=== PATIENT | female | born 1935 | race Caucasian/White ===

== ENCOUNTER 2022-10-06 19:16 | Inpatient (IN) | payer MEDICARE, MEDICAID, SELFPAY ==
--- NOTE | ~2022-10-06 | XR_ITS ---
EXAMINATION: XR CHEST CLINICAL INFORMATION: Cough and fever COMPARISON: None available. TECHNIQUE: Frontal view of the chest was obtained. FINDINGS: Normal symmetric lung volumes. No parenchymal consolidation. No pleural effusion. No pneumothorax. Cardiomediastinal silhouette and pulmonary vascularity are within normal limits. Aorta is atherosclerotic. Moderate hiatal hernia. No acute osseous abnormalities. XR/XR chest 1V IMPRESSION: Clear lungs
--- NOTE | ~2022-10-06 | CT_ITS ---
EXAMINATION: CT CHEST WITHOUT CONTRAST CLINICAL INFORMATION: Shortness of breath. COMPARISON: Chest radiographs dated 10/12/2022. TECHNIQUE: Multidetector volumetric CT imaging of the chest was done. Axial MIP volume rendering provided. Sagittal and coronal reformatted images were obtained. This CT examination was performed using dose optimization techniques as appropriate, variously including the following: *Automated exposure control *Adjustment of mA and/or kV according to patient size (this includes techniques or standardized protocols for targeted exams where dose is matched to indication/reason for exam; i.e. extremities or head) *Use of iterative reconstruction technique DLP: 114 mGy-cm FINDINGS: NURSING SURGICAL SERVICES DIRECTOR: The lungs are symmetrically well-expanded and grossly clear. LUNGS: Imaging is limited by respiratory motion. At the medial right apex, there is pleural and parenchymal scarring. An adjacent 4 mm noncalcified nodule is seen (5:132). No mass, infiltrate or groundglass opacity is seen. There is no generalized increase in peripheral interstitial septal markings. No bleb or bullous formation is seen. There is no small airway thickening. The central airways appear patent. MEDIASTINUM: Within the left thyroid lobe (3:9), a 7 mm nodule is incidentally noted. There are shotty, nonpathologically enlarged mediastinal lymph nodes. No sizable mediastinal or hilar lymphadenopathy is seen. There is no thoracic aortic aneurysm. There are atherosclerotic calcifications of the great vessel origins and thoracic aorta. CORONARY ARTERY CALCIFICATION: Mild. PLEURA: There is no pleural effusion. No pleural mass or thickening. AXILLA: No lymphadenopathy. UPPER ABDOMEN: There is a very large hiatus hernia, with an intrathoracic position of the gastric cardia and proximal body. The adrenal glands are unremarkable. The gallbladder is surgically absent. OSSEOUS STRUCTURES: There is multi-level lower cervical and thoracic degenerative disc disease and spondylosis. No acute or aggressive osseous abnormality is seen. CT/CT chest wo IV con IMPRESSION: 1. A 4 mm noncalcified nodule is seen at the medial right apex, with adjacent focal pleural and parenchymal scarring. According to the UPDATED 2017 Fleischner Society recommendations, the advised follow-up imaging for solid nodules < 6 mm is: LOW RISK PATIENT: No routine follow-up. HIGH RISK PATIENT: Optional CT at 12 months. 2. No mass, infiltrate or groundglass opacity is seen. 3. There is no thoracic lymphadenopathy or pleural effusion. 4. There are degenerative changes of the spine. No aggressive osseous lesion is seen. 5. There is a very large hiatus hernia. Fleischner guidelines were followed.
[2022-10-06 20:00] VITALS: BP 131/62; PULSE 77; RESP 96; TEMP 36.4
[2022-10-06 21:54] VITALS: BMI 23.7
--- NOTE | 2022-10-06 22:49 | PC.ADMIT ---
A , primarily Maldivian-speaking, single female, aged 86 years was admitted to the [facility] Geriatric Psychiatric Inpatient as a CV at 1945, following referral from CARE team and [facility] in [place]. Pt was brought to [facility] from [facility] in [facility] on 10/02/22 following concerns about agitation and exit-seeking. Pt did not leave the facility. At the hospital pt experienced poor sleep, refusing to eat, with confusion and agitation. Pt was expressing that her daughter Becki was not okay . Pt reported seeing a lady who tells her Becki has been in a car accident . Memory was noted to be poor, pt was repetitive with poor insight. Pt was admitted to the care home on 06/22/2022 after daughter felt she could no longer keep her mother safe in the home, because of a history of wandering and also noting AH/VH. Pt became angry at Becki recently during a visit and told her to leave and never return. Pt was pleasant and cooperative with this functional tester typewriters upon arrival. Pt was social with Maldivian-speaking peers. During admission assessment with the assistance of an foreign language interpreter, pt denied pain, SI/HI, AH/VH. Pt states she can seek help if needed from staff. Pt said she is very sad because she was put into this place . Pt was focused on when she can leave and asked a number of times where she was. When told she was in [place], pt repeatedly said that she had once lived in [place]. Pt appeared to be experiencing internal stimulation and AH once she was in her bedroom and was disturbing her room mate. Pt did settle and appears to be sleeping at this time. Pt denies nicotine, Etoh or substance use. Medical issues include: Alzheimer's disease, GERD w/o esophagitis, diabetes mellitus type 2 w/o complications, urinary incontinence, vitamin D deficiency, mixed hyperlipidemia, anemia, insomnia, asymptomatic varicose veins, gait abnormality, HTN, RIA, MDD. Qnoeh-hc-owift done, admission orders obtained. Treatment plan done, but pt unable to complete safety tool.
[2022-10-07 06:00] VITALS: BP 132/64; PULSE 88
[2022-10-07 07:11] LABS: MANUAL DIFF FLAG NO
[2022-10-07 07:15] LABS: Basophils Percent Auto 0.5 % (0-2); Eosinophils Absolute Auto 0.2 X10*3/uL (0.0-0.4); Eosinophils Percent Auto 2.4 % (0-4); Hematocrit 25.4 % (37.0-47.0); Hemoglobin 8.1 g/dl (12.0-16.0); Imm Gran Abs Auto 0.03 X10*3/uL (0.00-0.03); Imm Gran Pct Auto 0.5 % (0.0-0.4); Lymphocytes Absolute Auto 1.3 X10*3/uL (1.2-4.9); Lymphocytes Percent Auto 19.7 % (20-40); Mean Corpuscular HGB Conc 31.9 g/dl (31.0-35.0); Mean Corpuscular Hemoglobin 25.1 pg (27.0-33.0); Mean Corpuscular Volume 78.6 fL (80.0-98.0); Mean Platelet Volume 9.4 fL (9.4-12.3); Monocytes Absolute Auto 0.6 X10*3/uL (0.1-1.2); Monocytes Percent Auto 9.3 % (2-11); Neutrophils Absolute Auto 4.4 x10*3/uL (2.0-8.3); Neutrophils Percent Auto 67.6 % (45-73); Platelet Count 373 X10*3/uL (160-400); Red Blood Count 3.23 X10*6/uL (4.20-5.50); Red Cell Distribution Width 19.7 % (11.0-16.0); White Blood Count 6.5 X10*3/uL (4.8-10.8)
[2022-10-07 07:35] LABS: Alanine Aminotransferase 13 U/L (0-31); Albumin Level 3.5 g/dL (3.5-5.0); Alkaline Phosphatase 44 U/L (39-117); Anion Gap 9 (12-20); Aspartate Amino Transferase 20 U/L (5-31); Bilirubin Total 0.4 mg/dL (0.0-1.0); Blood Urea Nitrogen 19 mg/dL (9-16); Calcium 9.3 mg/dL (8.4-10.2); Carbon Dioxide 26 mmol/L (22-29); Chloride 109 mmol/L (96-108); Cholesterol 184 mg/dL; Creatinine Clr Calc Pharmacy 21.8; Estimated Glomerular Filt Rate 32; Glucose Fasting 92 mg/dL (60-99); HDL Cholesterol 32 mg/dL; LDL Cholesterol Calculated 131 mg/dl; Potassium 4.4 mmol/L (3.3-5.1); Sodium 140 mmol/L (135-145); Triglycerides 105 mg/dL
[2022-10-07 08:04] LABS: Folate 5.3 ng/mL (> or = 4.0); Thyroid Stimulating Hormone 1.27 uIU/mL (0.32-4.0); Vitamin B12 914 pg/mL (200-900)
[2022-10-07] MEDS: Omeprazole 20 MG CAPSULE.DR PO ×2 (09:06→20:42)
--- NOTE | 2022-10-07 11:08 | HO.PM.IMCN ---
History of Present Illness Data of Consult Service Date: 10/07/22 Primary Care Provider: Unknown Physician HPI Reason for consult: Admission H&P Pt is a 86-year-old female with a PMH significant for Alzheimer's dementia with psychotic symptoms including auditory hallucinations and paranoia, MDD, anxiety, GERD, anemia, HTN, HLD, and CKD stage 3?who is admitted to [facility] for increased agitation at her previous facility [facility]. Medical consult for admission H&P. ?Patient is alert and oriented to self only. Patient is pleasantly confused, unaware of her situation and unclear of where she is or why she is here; patient incapable of providing accurate HPI. Labs reviewed, significant for H&H of 8.1/25.7 and creatinine 1.56. These numbers are in line with previous labs drawn at [facility] on 10/02/2022. Review of Systems Review of Systems: Unable to obtain due to patient's mentation [facility] Medical History (Updated 10/07/22 @ 12:35 by MATTEO Gallagher) Alzheimer's dementia Anxiety GERD (gastroesophageal reflux disease) Social History Household Members: Other Household Members Other:: Pt lives in a alf Housing: Other Housing Other:: senior living Do you presently have visiting nurse or other home services: Yes (nursing care) Patient Tobacco Use Status: Never used Tobacco Smoked in Last 30 Days: No Second Hand Smoke Exposure: No Use of substances other than those prescribed or required for medical reasons: No Currently Displaying Signs/Symptoms of Drug Intoxication Withdrawal: No Any prior treatment program specific to substance use: No Have you been hit, kicked, punched, or otherwise hurt by someone within the past year? If so, by whom?: No Do you feel safe in your current relationship?: No Current Relationship Is there a partner from a previous relationship who is making you feel unsafe now?: No Are you made to feel afraid or neglected: No Spiritual Healthcare Practices: None Holiness Healthcare Practices: None Cultural Healthcare Practices: None Advance Directives: No Advance Directives Information Provided: No Do you have thoughts of harming others: None Do you have a plan to hurt others: No Plan Recently lost weight without trying: Unsure Eating poorly because of decreased appetite: No Nutrition Risks: No Nutritional Risk Patient : No : No Poor oral hygiene: No Meds Allergies Allergy/AdvReac Type Severity Reaction Status Date / Time No Known Allergies Allergy Verified 10/06/22 21:57 Active Medications: Current Medications Acetaminophen (Acetaminophen 325 Mg Tablet) 650 mg PO Q6H PRN PRN Reason: Headache/Pain Mild Scale (1-3) Al Hydroxide/Mg Hydroxide (Magnesium Hydrox/Alum Hydrox 30 Ml Oral.Susp) 30 ml PO Q6H PRN PRN Reason: Heartburn/Nausea Amlodipine Besylate (Amlodipine Besylate 5 Mg Tablet) 5 mg PO DAILY [facility]; Protocol Last Admin: 10/07/22 09:20 Dose: Not Given Atorvastatin Calcium (Atorvastatin Calcium 80 Mg Tablet) 80 mg PO BEDTIME [facility] Last Admin: 10/07/22 01:58 Dose: Not Given Fenofibrate (Fenofibrate 54 Mg Tablet) 54 mg PO DAILY [facility] Last Admin: 10/07/22 09:20 Dose: Not Given Hydralazine HCl (Hydralazine Hcl 25 Mg Tablet) 25 mg PO TID [facility]; Protocol Last Admin: 10/07/22 09:20 Dose: Not Given Hydroxyzine HCl (Hydroxyzine Hcl 25 Mg Tablet) 25 mg PO Q6H PRN PRN Reason: Anxiety Lorazepam (Lorazepam 0.5 Mg Tablet) 0.5 mg PO Q8H PRN PRN Reason: agitation Losartan Potassium (Losartan Potassium 50 Mg Tablet) 100 mg PO DAILY [facility]; Protocol Last Admin: 10/07/22 09:20 Dose: Not Given Magnesium Hydroxide (Milk Of Magnesia 30 Ml Oral.Susp) 30 ml PO DAILY PRN PRN Reason: Constipation Memantine (Memantine Hcl 10 Mg Tablet) 10 mg PO BID [facility] Last Admin: 10/07/22 09:51 Dose: Not Given Metoprolol Succinate (Metoprolol Succinate Er 25 Mg Tab.Er.24h) 25 mg PO DAILY [facility]; Protocol Last Admin: 10/07/22 09:51 Dose: Not Given Olanzapine (Olanzapine 2.5 Mg Tablet) 2.5 mg PO Q4H PRN PRN Reason: agitation Omeprazole (Omeprazole 20 Mg Capsule.Dr) 20 mg PO BID [facility] Last Admin: 10/07/22 09:06 Dose: 20 mg Pharmacy Consult (Consult Rx Perform Med Rec) 1 each MISCELLANE ONCE PRN PRN Reason: Consult order Trazodone HCl (Trazodone Hcl 50 Mg Tablet) 50 mg PO BEDTIME [id number] PRN PRN Reason: Insomnia Home Medications Medication Instructions Recorded Confirmed Last Taken Type amlodipine 5 mg tablet 5 mg PO DAILY 10/07/22 10/07/22 10/05/22 History 5 mg atorvastatin 80 mg tablet 80 mg PO BEDTIME 10/07/22 10/07/22 10/05/22 20:29 History 80 mg buspirone 5 mg tablet 5 mg PO BID 10/07/22 10/07/22 10/06/22 16:24 History 5 mg cholecalciferol (vitamin D3) 50 50 mcg PO DAILY 10/07/22 10/07/22 Unknown History mcg (2,000 unit) capsule fenofibrate 54 mg tablet 54 mg PO DAILY 10/07/22 10/07/22 10/06/22 09:31 History 54 mg hydralazine 25 mg tablet 25 mg PO TID 10/07/22 10/07/22 10/06/22 13:21 History 25 mg losartan 100 mg tablet 100 mg PO DAILY 10/07/22 10/07/22 10/06/22 09:23 History 100 mg memantine 5 mg tablet 10 mg PO BID 10/07/22 10/07/22 10/06/22 16:25 History 10 mg metoprolol succinate 25 mg 25 mg PO DAILY 10/07/22 10/07/22 10/05/22 09:09 History tablet,extended release 24 hr 25 mg olanzapine 5 mg tablet 5 mg PO DAILY 10/07/22 10/07/22 Unknown History pantoprazole 40 mg tablet,delayed 40 mg PO DAILY 10/07/22 10/07/22 10/06/22 09:30 History release 40 mg sertraline 50 mg tablet 50 mg PO DAILY 10/07/22 10/07/22 10/06/22 09:30 History 50 mg trazodone 50 mg tablet 125 mg PO BEDTIME 10/07/22 10/07/22 10/05/22 20:29 History 125 mg Physical Exam Vital Signs and Narrative: Vital Signs: Last Vital Signs Temp 97.6 F 10/06/22 20:00 Pulse 88 10/07/22 06:00 Resp 96 H 10/06/22 20:00 BP 132/64 10/07/22 06:00 BMI result Body Mass Index 23.7 General: AOx1, no acute distress Resp: CTA bilaterally CVS: S1, S2, RRR GI: +BS, NT, no distention Skin: Warm, dry Neuro: Cranial nerves II-XII grossly intact bilaterally. Motor grossly intact bilaterally. Extremities: No edema Psych: Pleasantly confused Results Labs 10/07/22 07:02 10/07/22 07:02 Labs: Laboratory Results - last 24 hr 10/07/22 10/07/22 07:02 07:02 MCV 78.6 L MCH 25.1 L MCHC 31.9 RDW 19.7 H Plt Count 373 MPV 9.4 Immature Gran % (Auto) 0.5 H Neut % (Auto) 67.6 Lymph % (Auto) 19.7 L [place] % (Auto) 9.3 Eos % (Auto) 2.4 Baso % (Auto) 0.5 Lymph # (Auto) 1.3 [place] # (Auto) 0.6 Eos # (Auto) 0.2 Baso # (Auto) 0.0 Abs Immat Gran (auto) 0.03 Absolute Neuts (auto) 4.4 Absolute Nucleated RBC 0.000 Nucleated RBC % (auto) 0.0 Anion Gap 9 L Estim Creat Clear Calc 21.8 Estimated GFR 32 Fasting Glucose 92 Calcium 9.3 Total Bilirubin 0.4 AST 20 ALT 13 Alkaline Phosphatase 44 Total Protein 6.0 L Albumin 3.5 Triglycerides 105 Cholesterol 184 LDL Cholesterol, Calc 131 HDL Cholesterol 32 Vitamin B12 914 H Folate 5.3 TSH 1.27 Assessment and Plan (1) Routine history and physical examination of adult: Status: Acute Plan Pt is a 86-year-old female with a PMH significant for Alzheimer's dementia with psychotic symptoms including auditory hallucinations and paranoia, MDD, anxiety, GERD, anemia, HTN, HLD, and CKD stage 3?who is admitted to [facility] for increased agitation at her previous facility [facility]. Medical consult for admission H&P. ?Patient is alert and oriented to self only. Patient is pleasantly confused, unaware of her situation and unclear of where she is or why she is here; patient incapable of providing accurate HPI. Mood disorder Plan as per Psychiatry Anemia Likely of chronic disease H&H 8.1/25.4, seems at baseline given review of previous labs from [facility] CKD stage 3 Patient's creatinine 1.56, seems at baseline given review of previous labs from [facility] Encourage p.o. intake of fluids HTN Continue amlodipine, hydralazine, losartan HLD Continue atorvastatin GERD Continue pantoprazole Thank you for allowing us to participate in the care of this patient. Signing off at this time. Please let us know if there are any acute complaints or questions. Time Spent With Patient Time: Total time managing care of this patient today ____ minutes.
--- NOTE | 2022-10-07 12:21 | P.HPPS_ITS ---
HPI Date of Service: 10/07/22 Chief Complaint: Major depression/Dementia Sources of Information: patient interviewed, chart reviewed and crisis/core team assessment reviewed HPI Healthcare Proxy: Yes (daughter) Medical Problems Affecting Mental Status: Yes (dementia) Narrative: 86 yo HF presents in transfer from halfway, she had previously been living with daugther but it became too much for daugther to manage. In halfway patient has been screaming , with possible AH/vh in the pm telling her her daughter is in danger or - She was not compliant at halfway with treatment with medications for her diabetes Past Psychiatric History: none Medical Evaluation Reviewed: Hospitalist Eval Pending had medical eval at [facility] with no acute medical findings [facility] Medical History (Updated 10/08/22 @ 08:01 by Jessenia Rhodes MD) Alzheimer's dementia Anxiety GERD (gastroesophageal reflux disease) Family History: non contributory Social History: had lived with daugther, now in [place] Substance History: no Trauma History: unknown Diagnostics Vital Signs (24Hr): Vital Signs - 24 hr 10/06/22 20:00 10/07/22 06:00 Temperature 97.6 F Pulse Rate 77 88 Respiratory Rate 96 H Blood Pressure 131/62 132/64 BMI result Body Mass Index 23.7 Labs 10/07/22 07:02 10/07/22 07:02 Labs: Laboratory Results - last 48 hr 10/07/22 10/07/22 07:02 07:02 WBC 6.5 RBC 3.23 L Hgb 8.1 L Hct 25.4 L MCV 78.6 L MCH 25.1 L MCHC 31.9 RDW 19.7 H Plt Count 373 MPV 9.4 Immature Gran % (Auto) 0.5 H Neut % (Auto) 67.6 Lymph % (Auto) 19.7 L [place] % (Auto) 9.3 Eos % (Auto) 2.4 Baso % (Auto) 0.5 Lymph # (Auto) 1.3 [place] # (Auto) 0.6 Eos # (Auto) 0.2 Baso # (Auto) 0.0 Abs Immat Gran (auto) 0.03 Absolute Neuts (auto) 4.4 Absolute Nucleated RBC 0.000 Nucleated RBC % (auto) 0.0 Sodium 140 Potassium 4.4 Chloride 109 H Carbon Dioxide 26 Anion Gap 9 L BUN 19 H Creatinine 1.56 H Estim Creat Clear Calc 21.8 Estimated GFR 32 Fasting Glucose 92 Calcium 9.3 Total Bilirubin 0.4 AST 20 ALT 13 Alkaline Phosphatase 44 Total Protein 6.0 L Albumin 3.5 Triglycerides 105 Cholesterol 184 LDL Cholesterol, Calc 131 HDL Cholesterol 32 Vitamin B12 914 H Folate 5.3 TSH 1.27 Meds/Allergies Meds Home Medications Medication Instructions Recorded Confirmed Type amlodipine 5 mg tablet 5 mg PO DAILY 10/07/22 10/07/22 History atorvastatin 80 mg tablet 80 mg PO BEDTIME 10/07/22 10/07/22 History buspirone 5 mg tablet 5 mg PO BID 10/07/22 10/07/22 History cholecalciferol (vitamin D3) 50 50 mcg PO DAILY 10/07/22 10/07/22 History mcg (2,000 unit) capsule fenofibrate 54 mg tablet 54 mg PO DAILY 10/07/22 10/07/22 History hydralazine 25 mg tablet 25 mg PO TID 10/07/22 10/07/22 History losartan 100 mg tablet 100 mg PO DAILY 10/07/22 10/07/22 History memantine 5 mg tablet 10 mg PO BID 10/07/22 10/07/22 History metoprolol succinate 25 mg 25 mg PO DAILY 10/07/22 10/07/22 History tablet,extended release 24 hr olanzapine 5 mg tablet 5 mg PO DAILY 10/07/22 10/07/22 History pantoprazole 40 mg tablet,delayed 40 mg PO DAILY 10/07/22 10/07/22 History release sertraline 50 mg tablet 50 mg PO DAILY 10/07/22 10/07/22 History trazodone 50 mg tablet 125 mg PO BEDTIME 10/07/22 10/07/22 History Allergies Allergies Allergy/AdvReac Type Severity Reaction Status Date / Time No Known Allergies Allergy Verified 10/06/22 21:57 Mental Status Exam Mental Status Exam Patient Appearance: Appropriate Patient Orientation: Person Level of Consciousness: Awake Patient Behavior: Appropriate (during day sitting with peers talking) and Cooperative Behavior Comments: other patient came up to tell me she was yelling all last night- Mood Description: Calm Affect Description: Calm and Apathetic Patient Cognition Impaired: Yes Ability to Follow Directions: Poor Speech Pattern: Clear Hallucinations: Auditory (reported ) and Visual Delusions: Present (belief that daugther is when sundowns in pm from dementia) Thought Process: Intact and Goal Oriented Thought Content: positive for [place] Depressive Symptoms: Insomnia Judgement: Poor Assessment & Plan Assessment & Plan (1) Dementia with behavioral disturbance: Status: Acute Code(s): F03.918 - Unspecified dementia, unspecified severity, with other behavioral dis turbance Plan olanzapine for sundowning Patient educated on: medication risk/benefits Informed Consent: does not understand and further education needed Reason for continued inpatient stay Substantial Risk for: inability to function and rapid decompensation Statement Statement: I have reviewed the history and physical and performed a pertinent examination on my patient. No changes have occurred unless specified. If the History and Physical was not performed prior to admission, the Hospitalist's service will be consulted for completing the admission physical. Time Spent With Patient Time: Total time managing care of this patient today ____ minutes.
[2022-10-07] MEDS: LORazepam 0.5 MG TABLET PO ×2 (20:40→23:46)
[2022-10-07] MEDS: OLANZapine 2.5 MG TABLET PO ×2 (20:40→21:06)
[2022-10-07] MEDS: Memantine HCl 10 MG TABLET PO ×2 (20:41→21:02)
[2022-10-07] MEDS: hydrALAZINE HCl 25 MG TABLET PO ×3 (20:42→21:01)
[2022-10-07] MEDS: Atorvastatin Calcium 80 MG TABLET PO (20:42)
[2022-10-07] MEDS: OLANZapine 5 MG TABLET PO (23:46)
[2022-10-08 09:11] VITALS: BP 172/78; PULSE 81; RESP 15; TEMP 36.2; O2SAT 97
[2022-10-08] MEDS: Losartan Potassium 50 MG TABLET 100 MG PO (09:18)
[2022-10-08] MEDS: amLODIPine Besylate 5 MG TABLET PO (09:18)
[2022-10-08] MEDS: Fenofibrate 54 MG TABLET PO (09:18)
[2022-10-08] MEDS: Memantine HCl 10 MG TABLET PO (09:18)
[2022-10-08] MEDS: Metoprolol Succinate ER 25 MG TAB.ER.24H PO (09:18)
[2022-10-08] MEDS: hydrALAZINE HCl 25 MG TABLET PO ×2 (09:18→15:52)
[2022-10-08] MEDS: Omeprazole 20 MG CAPSULE.DR PO (09:18)
--- NOTE | 2022-10-08 10:41 | HO.PSYCHPN ---
Subjective Subjective Date of Service: 10/08/22 Reason For Visit: Major depression/Dementia Subjective Notes: Section 12B Healthcare Proxy[place] cv[place] Medical Problems Affecting Mental Status: Yes (reports diabetes wonder if that is cause of ckd) Interim History: Pt was agitated and screaming last night- needed multiple doses of olanzapine then was sedated this am till lunch time- reports dry mouth, says she was seeing things- wonder if she has lewy body dementia not alz? Medication Compliance: Yes Side effects from medications: Yes (dry mouth) Attending Groups: Intermittent Review of Systems Acute medical concerns: No Medical Review of Systems: changed (just dry mouth, but got water and got up and ate) Mental Status Exam Mental Status Exam Patient Appearance: Disheveled and Inappropriate Patient Orientation: Person Level of Consciousness: Drowsy Patient Behavior: Impulsive and Sundowning Mood Description: Calm and Angry Affect Description: Labile Patient Cognition Impaired: Yes Ability to Follow Directions: Poor Speech Pattern: Clear Hallucinations: Visual Thought Process: Disoriented and Confusion Thought Content: positive for Poverty of Content Abnormal Motor Activity Signs and Symptoms: Agitation (in evenings) Judgement: Poor Diagnostics Vital Signs (24Hr): Vital Signs - 24 hr 10/08/22 09:11 Temperature 97.2 F Pulse Rate 81 Respiratory Rate 15 Blood Pressure 172/78 H Pulse Oximetry 97 Oxygen Delivery Method Room Air BMI result Body Mass Index 23.7 Labs 10/07/22 07:02 10/07/22 07:02 Labs: Laboratory Results - last 48 hr 10/07/22 10/07/22 07:02 07:02 WBC 6.5 RBC 3.23 L Hgb 8.1 L Hct 25.4 L MCV 78.6 L MCH 25.1 L MCHC 31.9 RDW 19.7 H Plt Count 373 MPV 9.4 Immature Gran % (Auto) 0.5 H Neut % (Auto) 67.6 Lymph % (Auto) 19.7 L [place] % (Auto) 9.3 Eos % (Auto) 2.4 Baso % (Auto) 0.5 Lymph # (Auto) 1.3 [place] # (Auto) 0.6 Eos # (Auto) 0.2 Baso # (Auto) 0.0 Abs Immat Gran (auto) 0.03 Absolute Neuts (auto) 4.4 Absolute Nucleated RBC 0.000 Nucleated RBC % (auto) 0.0 Sodium 140 Potassium 4.4 Chloride 109 H Carbon Dioxide 26 Anion Gap 9 L BUN 19 H Creatinine 1.56 H Estim Creat Clear Calc 21.8 Estimated GFR 32 Fasting Glucose 92 Calcium 9.3 Total Bilirubin 0.4 AST 20 ALT 13 Alkaline Phosphatase 44 Total Protein 6.0 L Albumin 3.5 Triglycerides 105 Cholesterol 184 LDL Cholesterol, Calc 131 HDL Cholesterol 32 Vitamin B12 914 H Folate 5.3 TSH 1.27 doesn't appear hyperglycemic Medications Medications Current Medications Acetaminophen (Acetaminophen 325 Mg Tablet) 650 mg PO Q6H PRN PRN Reason: Headache/Pain Mild Scale (1-3) Al Hydroxide/Mg Hydroxide (Magnesium Hydrox/Alum Hydrox 30 Ml Oral.Susp) 30 ml PO Q6H PRN PRN Reason: Heartburn/Nausea Amlodipine Besylate (Amlodipine Besylate 5 Mg Tablet) 5 mg PO DAILY [facility]; Protocol Last Admin: 10/08/22 09:18 Dose: 5 mg Atorvastatin Calcium (Atorvastatin Calcium 80 Mg Tablet) 80 mg PO BEDTIME [facility] Last Admin: 10/07/22 20:42 Dose: 80 mg Fenofibrate (Fenofibrate 54 Mg Tablet) 54 mg PO DAILY [facility] Last Admin: 10/08/22 09:18 Dose: 54 mg Hydralazine HCl (Hydralazine Hcl 25 Mg Tablet) 25 mg PO TID [facility]; Protocol Last Admin: 10/08/22 09:18 Dose: 25 mg Hydroxyzine HCl (Hydroxyzine Hcl 25 Mg Tablet) 25 mg PO Q6H PRN PRN Reason: Anxiety Lorazepam (Lorazepam 0.5 Mg Tablet) 0.5 mg PO Q8H PRN PRN Reason: agitation Last Admin: 10/07/22 20:40 Dose: 0.5 mg Losartan Potassium (Losartan Potassium 50 Mg Tablet) 100 mg PO DAILY [facility]; Protocol Last Admin: 10/08/22 09:18 Dose: 100 mg Magnesium Hydroxide (Milk Of Magnesia 30 Ml Oral.Susp) 30 ml PO DAILY PRN PRN Reason: Constipation Memantine (Memantine Hcl 10 Mg Tablet) 10 mg PO BID [facility] Last Admin: 10/08/22 09:18 Dose: 10 mg Metoprolol Succinate (Metoprolol Succinate Er 25 Mg Tab.Er.24h) 25 mg PO DAILY [facility]; Protocol Last Admin: 10/08/22 09:18 Dose: 25 mg Olanzapine (Olanzapine 2.5 Mg Tablet) 2.5 mg PO Q4H PRN PRN Reason: agitation Last Admin: 10/07/22 21:06 Dose: 2.5 mg Olanzapine (Olanzapine 2.5 Mg Tablet) 2.5 mg PO BEDTIME [facility] Last Admin: 10/07/22 20:40 Dose: 2.5 mg Omeprazole (Omeprazole 20 Mg Capsule.) 20 mg PO BID [facility] Last Admin: 10/08/22 09:18 Dose: 20 mg Pharmacy Consult (Consult Rx Perform Med Rec) 1 each MISCELLANE ONCE PRN PRN Reason: Consult order Allergies Allergies Allergy/AdvReac Type Severity Reaction Status Date / Time No Known Allergies Allergy Verified 10/06/22 21:57 Assessment & Plan Assessment & Plan (1) Dementia with behavioral disturbance: Status: Acute Code(s): F03.918 - Unspecified dementia, unspecified severity, with other behavioral disturbance Assessment and Plan: needs daugther to come sign cv Plan olanzapine for 10/08 needed 7.5mg olanzapine but was too sedated this am - will try 5mg tonight gather past hx ? of diabetes from daugther Patient educated on: medication risk/benefits Informed Consent: further education needed Reason for continued inpatient stay Substantial Risk for: inability to function Time Spent With Patient Time: Total time managing care of this patient today ____ minutes.
[2022-10-08 15:43] VITALS: BP 150/74; PULSE 74
[2022-10-08] MEDS: OLANZapine 2.5 MG TABLET PO (17:25)
[2022-10-08] MEDS: LORazepam 0.5 MG TABLET PO (17:25)
[2022-10-08 18:00] VITALS: BP 126/60; PULSE 74; RESP 18; TEMP 36.8; O2SAT 95
--- NOTE | 2022-10-08 21:55 | PC.NURSE ---
Patient sleeping attempted to wake patient and she refused all meds and assessments.
[2022-10-09 08:15] VITALS: BP 160/67; PULSE 91; RESP 17; TEMP 37.3; O2SAT 96
[2022-10-09] MEDS: Losartan Potassium 50 MG TABLET 100 MG PO (08:17)
[2022-10-09] MEDS: Fenofibrate 54 MG TABLET PO (08:17)
[2022-10-09] MEDS: amLODIPine Besylate 5 MG TABLET PO (08:17)
[2022-10-09] MEDS: hydrALAZINE HCl 25 MG TABLET PO ×3 (08:17→22:05)
[2022-10-09] MEDS: Memantine HCl 10 MG TABLET PO ×2 (08:17→22:06)
[2022-10-09] MEDS: Omeprazole 20 MG CAPSULE.DR PO ×2 (08:18→22:05)
[2022-10-09] MEDS: Metoprolol Succinate ER 25 MG TAB.ER.24H PO (08:18)
[2022-10-09 14:26] LABS: Iron 29 mcg/dL (30-160); Percent Iron Saturation 12 % (15-50); Total Iron Binding Capacity 245 mcg/dL (228-428); Unsaturated Iron Binding 216 ug/dL
--- NOTE | 2022-10-09 14:26 | P.PNPSI_ITS ---
Subjective Subjective Date of Service: 10/09/22 Reason For Visit: Major depression/Dementia Subjective Notes: Conditional Voluntary Healthcare Proxy: Yes (invoked) Interim History: This teletypewriter operator and HAZEL Cooper called HCP- Becki. HCP gave verbal consent to sign CV and CASA. Pt presents as calm and cooperative. She asks this teletypewriter operator why she is here as she thinks she has been here for one day. This teletypewriter operator explained that pt was more confuse and combative. Pt does not know month or year. She did repeat same question 10 minutes after as to where she was and why she was here. Pt denied SI/HI. She reports at times feeling sad, but denies any plan or intent to harm self. Per nursing, pt slept through the night. She seemed to be somewhat sedated yesterday and this morning, much more awake later in day. no behavioral concerns. but did receive olanzapine Sunday night due to combative behaviors needed to be redirected. Mental Status Exam Mental Status Exam Narrative: Appearance: casually groomed, good hygiene in NAD Behavior: cooperative Psychomotor: no agitation or retardation noted Speech: clear, normal rate/rhythm/volume, spontaneous TP: repetitive TC: no overt delusions, feeling better and confused as to why she is here. Mood: better Affect: congruent SI: denies HI: denies Delusions: none Insight/judgment: impaired x 2. Memory/cog: alert, not oriented to place, month, date, situation. severely impaired. Diagnostics Vital Signs (24Hr): Vital Signs - 24 hr 10/08/22 15:43 10/08/22 18:00 10/09/22 08:15 Temperature 98.3 F 99.1 F Pulse Rate 74 74 91 Respiratory Rate 18 17 Blood Pressure 150/74 H 126/60 160/67 H Pulse Oximetry 95 96 Oxygen Delivery Method Room Air Room Air BMI result Body Mass Index 23.7 Labs 10/07/22 07:02 10/07/22 07:02 Labs: Laboratory Results - last 48 hr 10/09/22 13:07 Iron 29 L TIBC 245 % Saturation 12 L Unsat Iron Binding 216 Medications Medications Current Medications Acetaminophen (Acetaminophen 325 Mg Tablet) 650 mg PO Q6H PRN PRN Reason: Headache/Pain Mild Scale (1-3) Al Hydroxide/Mg Hydroxide (Magnesium Hydrox/Alum Hydrox 30 Ml Oral.Susp) 30 ml PO Q6H PRN PRN Reason: Heartburn/Nausea Amlodipine Besylate (Amlodipine Besylate 5 Mg Tablet) 5 mg PO DAILY [facility]; Protocol Last Admin: 10/09/22 08:17 Dose: 5 mg Atorvastatin Calcium (Atorvastatin Calcium 80 Mg Tablet) 80 mg PO BEDTIME [facility] Last Admin: 10/08/22 20:14 Dose: Not Given Fenofibrate (Fenofibrate 54 Mg Tablet) 54 mg PO DAILY [facility] Last Admin: 10/09/22 08:17 Dose: 54 mg Hydralazine HCl (Hydralazine Hcl 25 Mg Tablet) 25 mg PO TID [facility]; Protocol Last Admin: 10/09/22 08:17 Dose: 25 mg Hydroxyzine HCl (Hydroxyzine Hcl 25 Mg Tablet) 25 mg PO Q6H PRN PRN Reason: Anxiety Lorazepam (Lorazepam 0.5 Mg Tablet) 0.5 mg PO Q8H PRN PRN Reason: agitation Last Admin: 10/08/22 17:25 Dose: 0.5 mg Losartan Potassium (Losartan Potassium 50 Mg Tablet) 100 mg PO DAILY [facility]; Protocol Last Admin: 10/09/22 08:17 Dose: 100 mg Magnesium Hydroxide (Milk Of Magnesia 30 Ml Oral.Susp) 30 ml PO DAILY PRN PRN Reason: Constipation Memantine (Memantine Hcl 10 Mg Tablet) 10 mg PO BID [facility] Last Admin: 10/09/22 08:17 Dose: 10 mg Metoprolol Succinate (Metoprolol Succinate Er 25 Mg Tab.Er.24h) 25 mg PO DAILY [facility]; Protocol Last Admin: 10/09/22 08:18 Dose: 25 mg Olanzapine (Olanzapine 2.5 Mg Tablet) 2.5 mg PO Q4H PRN PRN Reason: agitation Last Admin: 10/08/22 17:25 Dose: 2.5 mg Olanzapine (Olanzapine 5 Mg Tablet) 5 mg PO BEDTIME [facility] Last Admin: 10/08/22 20:15 Dose: Not Given Omeprazole (Omeprazole 20 Mg Capsule.Dr) 20 mg PO BID [facility] Last Admin: 10/09/22 08:18 Dose: 20 mg Pharmacy Consult (Consult Rx Perform Med Rec) 1 each MISCELLANE ONCE PRN PRN Reason: Consult order Allergies Allergies Allergy/AdvReac Type Severity Reaction Status Date / Time No Known Allergies Allergy Verified 10/06/22 21:57 Assessment & Plan Assessment & Plan (1) Alzheimer's dementia: Qualifiers: Dementia severity: severe Dementia behavioral or psychological symptom: with other behavioral disturbance Status: Acute Code(s): G30.9 - Alzheimer's disease, unspecified; F02.80 - Dementia in other diseases classified elsewhere, unspecified severity, without behavioral disturbance, ps ychotic disturbance, mood disturbance, and anxiety Plan Mrs. Garcia is a 86 year-old woman with hx of AD dementia, brought to ED due to increase combative behaviors and paranoid delusions. 10/09- continue tx. creatine clearance is 20, finofibrate contraindicated with such low creatine clearance (currently lipid panel wnl, including triglycerides).HCP invoked. Verbal consent to sign CV given to this teletypewriter operator and Hazel Cooper. Reason for continued inpatient stay Substantial Risk for: inability to function Time Spent With Patient Time: Total time managing care of this patient today ____ minutes.
[2022-10-09 14:49] LABS: Estimated Average Glucose 123 mg/dL; Hemoglobin A1C 91.0078 umol/L; Hemoglobin A1c % 5.9 %
[2022-10-09 15:45] VITALS: BP 151/71; PULSE 98
[2022-10-09 18:00] VITALS: BP 119/66; PULSE 70; TEMP 36.8
[2022-10-09] MEDS: LORazepam 0.5 MG TABLET PO (18:30)
[2022-10-09] MEDS: Atorvastatin Calcium 80 MG TABLET PO (22:05)
[2022-10-09] MEDS: OLANZapine 5 MG TABLET PO (22:05)
[2022-10-10 07:35] VITALS: BP 125/65; PULSE 80; RESP 20; TEMP 36.1; O2SAT 95
[2022-10-10] MEDS: amLODIPine Besylate 5 MG TABLET PO (08:28)
[2022-10-10] MEDS: Metoprolol Succinate ER 25 MG TAB.ER.24H PO (08:28)
[2022-10-10] MEDS: Losartan Potassium 50 MG TABLET 100 MG PO (08:28)
[2022-10-10] MEDS: Fenofibrate 54 MG TABLET PO (08:28)
[2022-10-10] MEDS: Omeprazole 20 MG CAPSULE.DR PO ×2 (08:29→21:13)
[2022-10-10] MEDS: hydrALAZINE HCl 25 MG TABLET PO ×3 (08:29→21:15)
[2022-10-10] MEDS: Memantine HCl 10 MG TABLET PO ×2 (08:31→21:15)
[2022-10-10] MEDS: LORazepam 0.5 MG TABLET PO ×2 (08:48→21:15)
[2022-10-10] MEDS: OLANZapine 2.5 MG TABLET PO ×2 (08:48→14:57)
--- NOTE | 2022-10-10 09:03 | HO.PSYCHPN ---
Subjective Subjective Date of Service: 10/10/22 Reason For Visit: Major depression/Dementia Subjective Notes: Conditional Voluntary Interim History: Pt confused a to where she is and why she is here. Significant anxiety as result of her lack of orientation. Pt reassured that her daughter Becki is aware that she is here. Pt asked again same question 10 minutes into conversation. Pt then presented as calmer. She denies physical pain. She did not know if she had had lunch which was being serve at the moment. Mental Status Exam Mental Status Exam Narrative: Appearance: casually groomed, good hygiene in NAD Behavior: cooperative Psychomotor: no agitation or retardation noted Speech: clear, normal rate/rhythm/volume, spontaneous TP: repetitive TC: no overt delusions, feeling better and confused as to why she is here. Mood: better Affect: congruent SI: denies HI: denies Delusions: none Insight/judgment: impaired x 2. Memory/cog: alert, not oriented to place, month, date, situation. severely impaired. Diagnostics Vital Signs (24Hr): Vital Signs - 24 hr 10/09/22 15:45 10/09/22 18:00 10/10/22 07:35 Temperature 98.3 F 97.0 F Pulse Rate 98 70 80 Respiratory Rate 20 Blood Pressure 151/71 H 119/66 125/65 Pulse Oximetry 95 Oxygen Delivery Method Room Air BMI result Body Mass Index 23.7 Labs 10/07/22 07:02 10/07/22 07:02 Labs: Laboratory Results - last 48 hr 10/07/22 10/09/22 07:02 13:07 Estimat Average Glucose 123 Hemoglobin A1c % 5.9 Iron 29 L TIBC 245 % Saturation 12 L Unsat Iron Binding 216 Medications Medications Current Medications Acetaminophen (Acetaminophen 325 Mg Tablet) 650 mg PO Q6H PRN PRN Reason: Headache/Pain Mild Scale (1-3) Al Hydroxide/Mg Hydroxide (Magnesium Hydrox/Alum Hydrox 30 Ml Oral.Susp) 30 ml PO Q6H PRN PRN Reason: Heartburn/Nausea Amlodipine Besylate (Amlodipine Besylate 5 Mg Tablet) 5 mg PO DAILY [facility]; Protocol Last Admin: 10/10/22 08:28 Dose: 5 mg Atorvastatin Calcium (Atorvastatin Calcium 80 Mg Tablet) 80 mg PO BEDTIME [facility] Last Admin: 10/09/22 22:05 Dose: 80 mg Fenofibrate (Fenofibrate 54 Mg Tablet) 54 mg PO DAILY [facility] Last Admin: 10/10/22 08:28 Dose: 54 mg Hydralazine HCl (Hydralazine Hcl 25 Mg Tablet) 25 mg PO TID [facility]; Protocol Last Admin: 10/10/22 08:29 Dose: 25 mg Hydroxyzine HCl (Hydroxyzine Hcl 25 Mg Tablet) 25 mg PO Q6H PRN PRN Reason: Anxiety Lorazepam (Lorazepam 0.5 Mg Tablet) 0.5 mg PO Q8H PRN PRN Reason: agitation Last Admin: 10/10/22 08:48 Dose: 0.5 mg Losartan Potassium (Losartan Potassium 50 Mg Tablet) 100 mg PO DAILY [facility]; Protocol Last Admin: 10/10/22 08:28 Dose: 100 mg Magnesium Hydroxide (Milk Of Magnesia 30 Ml Oral.Susp) 30 ml PO DAILY PRN PRN Reason: Constipation Memantine (Memantine Hcl 10 Mg Tablet) 10 mg PO BID [facility] Last Admin: 10/10/22 08:31 Dose: 10 mg Metoprolol Succinate (Metoprolol Succinate Er 25 Mg Tab.Er.24h) 25 mg PO DAILY [facility]; Protocol Last Admin: 10/10/22 08:28 Dose: 25 mg Olanzapine (Olanzapine 2.5 Mg Tablet) 2.5 mg PO Q4H PRN PRN Reason: agitation Last Admin: 10/10/22 08:48 Dose: 2.5 mg Olanzapine (Olanzapine 5 Mg Tablet) 5 mg PO BEDTIME [facility] Last Admin: 10/09/22 22:05 Dose: 5 mg Omeprazole (Omeprazole 20 Mg Capsule.Dr) 20 mg PO BID [facility] Last Admin: 10/10/22 08:29 Dose: 20 mg Pharmacy Consult (Consult Rx Perform Med Rec) 1 each MISCELLANE ONCE PRN PRN Reason: Consult order Allergies Allergies Allergy/AdvReac Type Severity Reaction Status Date / Time No Known Allergies Allergy Verified 10/06/22 21:57 Assessment & Plan Assessment & Plan (1) Alzheimer's dementia: Qualifiers: Dementia behavioral or psychological symptom: with other behavioral disturbance Dementia severity: severe Status: Acute Code(s): G30.9 - Alzheimer's disease, unspecified; F02.80 - Dementia in other diseases classified elsewhere, unspecified severity, without behavioral disturbance, psychotic disturbance, mood disturbance, and anxiety Plan Mrs. Garcia is a 86 year-old woman with hx of AD dementia, brought to ED due to increase combative behaviors and paranoid delusions. 10/09- continue tx. creatine clearance is 20, finofibrate contraindicated with such low creatine clearance (currently lipid panel wnl, including triglycerides).HCP invoked. Verbal consent to sign CV given to this service writer advisor and Nahomy Cooper. 10/10- pt presents as anxious and at times can be loud due to confusion of not knowing where she is and whether her daughter knows. will add antidepressant for mood. I do think exelon or aricept may have benefit on orientation/mood and may be worth trying. Pt not eating much- will do network security officer consult. Guardian/Caregiver educated on: diagnosis and medication risk/benefits Informed Consent: understands Reason for continued inpatient stay Substantial Risk for: inability to function Time Spent With Patient Time: Total time managing care of this patient today ____ minutes.
[2022-10-10 12:49] LABS: Appearance Urine Clear; Color Urine Yellow; Glucose Urine UA Negative (Negative); Leukocyte Esterase Urine Moderate (2+) (Negative); Nitrite Urine Negative (Negative); PH 5.5 (5.0-9.0); Specific Gravity - Urine 1.015 (1.005-1.025); UMIC TRIGGER UACC YES; Urine Blood Negative (Negative); Urine Ketones Trace mg/dL (Negative); Urine Protein Negative (Neg-Trace)
[2022-10-10 13:03] LABS: Bacteria Urine None Seen (None Seen); RBC Urine 0-2 /HPF (0-2); UACC Culture Trigger YES
[2022-10-10] MEDS: Ferrous Sulfate 300 MG/5 ML LIQUID PO (17:22)
[2022-10-10 18:00] VITALS: BP 151/69; PULSE 70; RESP 14; TEMP 36.9; O2SAT 96
[2022-10-10 21:00] VITALS: BP 141/63; PULSE 78; RESP 16
[2022-10-10] MEDS: Atorvastatin Calcium 80 MG TABLET PO (21:14)
[2022-10-10] MEDS: OLANZapine 5 MG TABLET PO (21:14)
[2022-10-10] MEDS: Mirtazapine 15 MG TABLET PO (21:21)
[2022-10-11 08:00] VITALS: BP 140/68; PULSE 85; RESP 18; TEMP 36.9; O2SAT 96
[2022-10-11] MEDS: hydrALAZINE HCl 25 MG TABLET PO ×3 (09:05→19:56)
[2022-10-11] MEDS: Omeprazole 20 MG CAPSULE.DR PO ×2 (09:05→19:55)
[2022-10-11] MEDS: Memantine HCl 10 MG TABLET PO ×2 (09:05→19:56)
[2022-10-11] MEDS: Metoprolol Succinate ER 25 MG TAB.ER.24H PO (09:05)
[2022-10-11] MEDS: amLODIPine Besylate 5 MG TABLET PO (09:05)
[2022-10-11] MEDS: Losartan Potassium 50 MG TABLET 100 MG PO (09:06)
--- NOTE | 2022-10-11 11:16 | MHC.CLN ---
NUTRITION CONSULT FOR POOR PO. VISITED WITH PATIENT IN COMMON AREA WITH TRANSLATION ASSIST FROM AID. AGREES TO ENSURE TID. PREFERS [facility]. KITCHEN AWARE. SUPPLEMENT PROVIDES ADDITIONAL 1050 KCALS, 60 G PROTEIN. FOLLOW WEEKLY FOR INTAKE.
--- NOTE | 2022-10-11 15:12 | HO.PSYCHPN ---
Subjective Subjective Date of Service: 10/11/22 Reason For Visit: Major depression/Dementia Subjective Notes: Conditional Voluntary Interim History: Pt has been visible on the unit. She is confused as to why she is here and asks this financial underwriter if her daughter will pick her up. She reports she got lost and ended up here. My daughter will be so mad at me! Am I in trouble? She denies SI/HI. pt presents as dysphoric and anxious at times when confused as to where she is and whether her children know about her. She denies VH/AH, in evening more confused. Medication Compliance: Yes Side effects from medications: No Attending Groups: No Diagnostics Vital Signs (24Hr): Vital Signs - 24 hr 10/10/22 18:00 10/10/22 21:00 10/11/22 08:00 Temperature 98.4 F 98.5 F Pulse Rate 70 78 85 Respiratory Rate 14 16 18 Blood Pressure 151/69 H 141/63 H 140/68 H Pulse Oximetry 96 96 Oxygen Delivery Method Room Air Room Air BMI result Body Mass Index 23.7 Labs 10/07/22 07:02 10/07/22 07:02 Labs: Laboratory Results - last 48 hr 10/10/22 12:25 Urine Color Yellow Urine Appearance Clear Urine pH 5.5 Ur Specific Sarah 1.015 Urine Protein Negative Urine Glucose (UA) Negative Urine Ketones Trace Urine Blood Negative Urine Nitrite Negative Ur Leukocyte Esterase Moderate (2+) H Urine RBC 0-2 Urine WBC 6-10 H Ur Squamous Epith Cells 3-5 Urine Bacteria None Seen Hyaline Casts 3-5 Medications Medications Current Medications Acetaminophen (Acetaminophen 325 Mg Tablet) 650 mg PO Q6H PRN PRN Reason: Headache/Pain Mild Scale (1-3) Al Hydroxide/Mg Hydroxide (Magnesium Hydrox/Alum Hydrox 30 Ml Oral.Susp) 30 ml PO Q6H PRN PRN Reason: Heartburn/Nausea Amlodipine Besylate (Amlodipine Besylate 5 Mg Tablet) 5 mg PO DAILY [facility]; Protocol Last Admin: 10/11/22 09:05 Dose: 5 mg Atorvastatin Calcium (Atorvastatin Calcium 80 Mg Tablet) 80 mg PO BEDTIME [facility] Last Admin: 10/10/22 21:14 Dose: 80 mg Ferrous Sulfate (Ferrous Sulfate 300 Mg/5 Ml Liquid) 300 mg PO Q48H [facility] Last Admin: 10/10/22 17:22 Dose: 300 mg Hydralazine HCl (Hydralazine Hcl 25 Mg Tablet) 25 mg PO TID [facility]; Protocol Last Admin: 10/11/22 09:05 Dose: 25 mg Hydroxyzine HCl (Hydroxyzine Hcl 25 Mg Tablet) 25 mg PO Q6H PRN PRN Reason: Anxiety Lorazepam (Lorazepam 0.5 Mg Tablet) 0.5 mg PO Q8H PRN PRN Reason: agitation Last Admin: 10/10/22 21:15 Dose: 0.5 mg Losartan Potassium (Losartan Potassium 50 Mg Tablet) 100 mg PO DAILY [facility]; Protocol Last Admin: 10/11/22 09:06 Dose: 100 mg Magnesium Hydroxide (Milk Of Magnesia 30 Ml Oral.Susp) 30 ml PO DAILY PRN PRN Reason: Constipation Memantine (Memantine Hcl 10 Mg Tablet) 10 mg PO BID [facility] Last Admin: 10/11/22 09:05 Dose: 10 mg Metoprolol Succinate (Metoprolol Succinate Er 25 Mg Tab.Er.24h) 25 mg PO DAILY [facility]; Protocol Last Admin: 10/11/22 09:05 Dose: 25 mg Mirtazapine (Mirtazapine 15 Mg Tablet) 15 mg PO BEDTIME [facility] Last Admin: 10/10/22 21:21 Dose: 15 mg Olanzapine (Olanzapine 2.5 Mg Tablet) 2.5 mg PO Q4H PRN PRN Reason: agitation Last Admin: 10/10/22 14:57 Dose: 2.5 mg Olanzapine (Olanzapine 5 Mg Tablet) 5 mg PO BEDTIME [facility] Last Admin: 10/10/22 21:14 Dose: 5 mg Omeprazole (Omeprazole 20 Mg Capsule.Dr) 20 mg PO BID [facility] Last Admin: 10/11/22 09:05 Dose: 20 mg Pharmacy Consult (Consult Rx Perform Med Rec) 1 each MISCELLANE ONCE PRN PRN Reason: Consult order Allergies Allergies Allergy/AdvReac Type Severity Reaction Status Date / Time No Known Allergies Allergy Verified 10/06/22 21:57 Assessment & Plan Assessment & Plan (1) Alzheimer's dementia: Qualifiers: Dementia behavioral or psychological symptom: with other behavioral disturbance Dementia severity: severe Status: Acute Code(s): G30.9 - Alzheimer's disease, unspecified; F02.80 - Dementia in other diseases classified elsewhere, unspecified severity, without behavioral disturbance, psychotic disturbance, mood disturbance, and anxiety Plan Mrs. Garcia is a 86 year-old woman with hx of AD dementia, brought to ED due to increase combative behaviors and paranoid delusions. 10/09- continue tx. creatine clearance is 20, finofibrate contraindicated with such low creatine clearance (currently lipid panel wnl, including triglycerides).HCP invoked. Verbal consent to sign CV given to this financial underwriter and Nahomy Cooper. 10/10- pt presents as anxious and at times can be loud due to confusion of not knowing where she is and whether her daughter knows. will add antidepressant for mood. I do think exelon or aricept may have benefit on orientation/mood and may be worth trying. Pt not eating much- will do yoga coordinator consult. 10/11 continue tx. This financial underwriter spoke with pt's PCP Dr. 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 Reason for continued inpatient stay Substantial Risk for: inability to function Time Spent With Patient Time: Total time managing care of this patient today ____ minutes.
[2022-10-11] MEDS: Divalproex Sodium Sprinkles 125 MG CAP.DR.SPR PO ×2 (17:03→19:56)
[2022-10-11 18:00] VITALS: BP 165/70; PULSE 79; RESP 18; TEMP 36.7; O2SAT 97
[2022-10-11] MEDS: Rivastigmine Tartrate 1.5 MG CAPSULE PO (19:55)
[2022-10-11] MEDS: Atorvastatin Calcium 80 MG TABLET PO (19:57)
[2022-10-11] MEDS: LORazepam 0.5 MG TABLET PO (19:57)
[2022-10-11] MEDS: Mirtazapine 15 MG TABLET PO (19:57)
[2022-10-11] MEDS: OLANZapine 5 MG TABLET PO (19:57)
[2022-10-12 05:30] VITALS: BP 137/63; PULSE 94; RESP 20; TEMP 37.7; O2SAT 94
[2022-10-12] MEDS: guaiFENesin DM 100/10/5 ML 5 ML SYRUP PO (05:48)
--- NOTE | 2022-10-12 06:21 | PC.NURSE ---
dr jay marie contacted notified 1. pt has developed sudden onset dry nonproductive cough 2. she is febrile 100 3. p 94 bpm rr 18 sao2 94% b/p 137/63 4. pt states that she feels sick- plan 1. stat cxr 2. rapid covid test 3. robitussin dm 5 ml q 6 hr prn cough-
[2022-10-12 06:30] LABS: COVID-19 Test Negative (Negative); IDNOW Serial# BCCEAD1C
[2022-10-12 09:14] LABS: Alanine Aminotransferase 14 U/L (0-31); Albumin Level 3.9 g/dL (3.5-5.0); Alkaline Phosphatase 45 U/L (39-117); Anion Gap 14 (12-20); Aspartate Amino Transferase 21 U/L (5-31); Bilirubin Total 0.5 mg/dL (0.0-1.0); Blood Urea Nitrogen 17 mg/dL (9-16); Calcium 9.9 mg/dL (8.4-10.2); Carbon Dioxide 27 mmol/L (22-29); Chloride 108 mmol/L (96-108); Creatinine Clr Calc Pharmacy 26.4; Estimated Glomerular Filt Rate 39; Glucose Random 102 mg/dL (60-115); Potassium 4.7 mmol/L (3.3-5.1); Sodium 144 mmol/L (135-145); Total Protein 6.7 g/dL (6.5-8.0)
[2022-10-12 09:50] VITALS: BMI 19.8
[2022-10-12] MEDS: Metoprolol Succinate ER 25 MG TAB.ER.24H PO (10:06)
[2022-10-12] MEDS: Divalproex Sodium Sprinkles 125 MG CAP.DR.SPR PO ×3 (10:06→22:07)
[2022-10-12] MEDS: Rivastigmine Tartrate 1.5 MG CAPSULE PO ×2 (10:06→22:05)
[2022-10-12] MEDS: hydrALAZINE HCl 25 MG TABLET PO ×3 (10:06→22:07)
[2022-10-12] MEDS: Losartan Potassium 50 MG TABLET 100 MG PO (10:06)
[2022-10-12] MEDS: Omeprazole 20 MG CAPSULE.DR PO ×2 (10:06→22:06)
[2022-10-12] MEDS: amLODIPine Besylate 5 MG TABLET PO (10:06)
[2022-10-12] MEDS: Memantine HCl 10 MG TABLET PO ×2 (10:07→22:07)
[2022-10-12 10:15] LABS: MANUAL DIFF FLAG NO
[2022-10-12 10:17] LABS: Basophils Absolute Auto 0.1 X10*3/uL (0.0-0.2); Basophils Percent Auto 0.7 % (0-2); Eosinophils Absolute Auto 0.3 X10*3/uL (0.0-0.4); Eosinophils Percent Auto 3.3 % (0-4); Hematocrit 31.1 % (37.0-47.0); Hemoglobin 9.6 g/dl (12.0-16.0); Imm Gran Abs Auto 0.03 X10*3/uL (0.00-0.03); Imm Gran Pct Auto 0.4 % (0.0-0.4); Lymphocytes Absolute Auto 2.1 X10*3/uL (1.2-4.9); Lymphocytes Percent Auto 24.7 % (20-40); Mean Corpuscular HGB Conc 30.9 g/dl (31.0-35.0); Mean Corpuscular Hemoglobin 25.2 pg (27.0-33.0); Mean Corpuscular Volume 81.6 fL (80.0-98.0); Mean Platelet Volume 9.3 fL (9.4-12.3); Monocytes Absolute Auto 0.7 X10*3/uL (0.1-1.2); Monocytes Percent Auto 7.7 % (2-11); Neutrophils Absolute Auto 5.3 x10*3/uL (2.0-8.3); Neutrophils Percent Auto 63.2 % (45-73); Platelet Count 407 X10*3/uL (160-400); Red Blood Count 3.81 X10*6/uL (4.20-5.50); Red Cell Distribution Width 19.4 % (11.0-16.0); White Blood Count 8.4 X10*3/uL (4.8-10.8)
[2022-10-12 10:41] LABS: Alanine Aminotransferase 14 U/L (0-31); Albumin Level 4.1 g/dL (3.5-5.0); Alkaline Phosphatase 51 U/L (39-117); Anion Gap 18 (12-20); Aspartate Amino Transferase 25 U/L (5-31); Bilirubin Total 0.5 mg/dL (0.0-1.0); Blood Urea Nitrogen 18 mg/dL (9-16); Calcium 9.8 mg/dL (8.4-10.2); Carbon Dioxide 23 mmol/L (22-29); Chloride 107 mmol/L (96-108); Creatinine Clr Calc Pharmacy 23.5; Estimated Glomerular Filt Rate 36; Potassium 4.2 mmol/L (3.3-5.1); Sodium 144 mmol/L (135-145); Total Protein 7.2 g/dL (6.5-8.0)
[2022-10-12 10:54] LABS: Glucose Fasting 159 mg/dL (60-99)
--- NOTE | 2022-10-12 11:03 | HO.PSYCHPN ---
Subjective Subjective Date of Service: 10/11/22 Reason For Visit: Major depression/Dementia Subjective Notes: Conditional Voluntary Healthcare Proxy: Yes Interim History: Per nursing, pt slept through the night. Pt did have some cough, temp 100. CBC, CMP ordered. Pt mostly in bed, denies any physical concern but this appeared to be in relation to severe cognitive impairment and ability to identify physical symptoms. Pt reports she can hear her daughter's voice in the air. She reports as we were meeting that her daughter was telling her that she will get her out of here, don't worry, you will get better. Pt noted to be coughing. Recheck VS- 130/60, HR103, Temp 99. 5/18- CBC without leukocytocis, improvement in microcytic anemia (Hg up to 9 from 7.9 in ED), CMP improvement in BUN 18, Cr 1.40 from BUN 19, Cr 1.52. No electrolyte abnormalities. Stable LFTs. will order respiratory panel and chest xr. Medication Compliance: Yes Side effects from medications: No Review of Systems Review of Systems patient denies any symptoms Mental Status Exam Mental Status Exam Narrative: Appearance: casually groomed, good hygiene in NAD Behavior: cooperative Psychomotor: no agitation or retardation noted Speech: clear, normal rate/rhythm/volume, spontaneous TP: repetitive TC: no overt delusions, feeling better and confused as to why she is here. Mood: better Affect: congruent SI: denies HI: denies Delusions: none Insight/judgment: impaired x 2. Memory/cog: alert, not oriented to place, month, date, situation. severely impaired. Patient Appearance: Disheveled and Inappropriate Patient Orientation: Person Level of Consciousness: Drowsy Patient Behavior: Impulsive and Sundowning Behavior Comments: other patient came up to tell me she was yelling all last night- Mood Description: Calm and Angry Affect Description: Labile Patient Cognition Impaired: Yes Ability to Follow Directions: Poor Speech Pattern: Clear Diagnostics Vital Signs (24Hr): Vital Signs - 24 hr 10/12/22 05:30 10/11/22 18:00 Temperature 100 F 98.1 F Pulse Rate 94 79 Respiratory Rate 20 18 Blood Pressure 137/63 165/70 H Pulse Oximetry 94 97 Oxygen Delivery Method Room Air Room Air BMI result Body Mass Index 19.8 Labs 10/12/22 10:14 10/12/22 10:06 Labs: Laboratory Results - last 48 hr 10/10/22 10/12/22 10/12/22 12:25 06:10 08:11 WBC RBC Hgb Hct MCV MCH MCHC RDW Plt Count MPV Immature Gran % (Auto) Neut % (Auto) Lymph % (Auto) [place] % (Auto) Eos % (Auto) Baso % (Auto) Lymph # (Auto) [place] # (Auto) Eos # (Auto) Baso # (Auto) Abs Immat Gran (auto) Absolute Neuts (auto) Absolute Nucleated RBC Nucleated RBC % (auto) Sodium 144 Potassium 4.7 Chloride 108 Carbon Dioxide 27 Anion Gap 14 BUN 17 H Creatinine 1.29 Estim Creat Clear Calc 26.4 Estimated GFR 39 Random Glucose 102 Fasting Glucose Calcium 9.9 D Total Bilirubin 0.5 AST 21 ALT 14 Alkaline Phosphatase 45 Total Protein 6.7 Albumin 3.9 Urine Color Yellow Urine Appearance Clear Urine pH 5.5 Ur Specific [place] 1.015 Urine Protein Negative Urine Glucose (UA) Negative Urine Ketones Trace Urine Blood Negative Urine Nitrite Negative Ur Leukocyte Esterase Moderate (2+) H Urine RBC 0-2 Urine WBC 6-10 H Ur Squamous Epith Cells 3-5 Urine Bacteria None Seen Hyaline Casts 3-5 COVID-19 (JIAN) Negative COVID-19 Clin Com See Note 10/12/22 10/12/22 10:06 10:14 WBC 8.4 RBC 3.81 L Hgb 9.6 L Hct 31.1 L D MCV 81.6 MCH 25.2 L MCHC 30.9 L RDW 19.4 H Plt Count 407 H MPV 9.3 L Immature Gran % (Auto) 0.4 Neut % (Auto) 63.2 Lymph % (Auto) 24.7 [place] % (Auto) 7.7 Eos % (Auto) 3.3 Baso % (Auto) 0.7 Lymph # (Auto) 2.1 [place] # (Auto) 0.7 Eos # (Auto) 0.3 Baso # (Auto) 0.1 Abs Immat Gran (auto) 0.03 Absolute Neuts (auto) 5.3 Absolute Nucleated RBC 0.000 Nucleated RBC % (auto) 0.0 Sodium 144 Potassium 4.2 Chloride 107 Carbon Dioxide 23 Anion Gap 18 BUN 18 H Creatinine 1.40 Estim Creat Clear Calc 23.5 Estimated GFR 36 Random Glucose Fasting Glucose 159 H Calcium 9.8 Total Bilirubin 0.5 AST 25 ALT 14 Alkaline Phosphatase 51 Total Protein 7.2 Albumin 4.1 Urine Color Urine Appearance Urine pH Ur Specific [place] Urine Protein Urine Glucose (UA) Urine Ketones Urine Blood Urine Nitrite Ur Leukocyte Esterase Urine RBC Urine WBC Ur Squamous Epith Cells Urine Bacteria Hyaline Casts COVID-19 (JIAN) COVID-19 Clin Com Imaging Radiology Impressions: ITS Impressions Chest X-Ray 10/12/22 06:00 IMPRESSION: Clear lungs Medications Medications Current Medications Acetaminophen (Acetaminophen 325 Mg Tablet) 650 mg PO Q6H PRN PRN Reason: Headache/Pain Mild Scale (1-3) Al Hydroxide/Mg Hydroxide (Magnesium Hydrox/Alum Hydrox 30 Ml Oral.Susp) 30 ml PO Q6H PRN PRN Reason: Heartburn/Nausea Amlodipine Besylate (Amlodipine Besylate 5 Mg Tablet) 5 mg PO DAILY [facility]; Protocol Last Admin: 10/12/22 10:06 Dose: 5 mg Atorvastatin Calcium (Atorvastatin Calcium 80 Mg Tablet) 80 mg PO BEDTIME [facility] Last Admin: 10/11/22 19:57 Dose: 80 mg Divalproex Sodium (Divalproex Sodium Sprinkles 125 Mg ) 125 mg PO TID [facility] Last Admin: 10/12/22 10:06 Dose: 125 mg Ferrous Sulfate (Ferrous Sulfate 300 Mg/5 Ml Liquid) 300 mg PO Q48H [facility] Last Admin: 10/10/22 17:22 Dose: 300 mg Guaifenesin/Dextromethorphan (Guaifenesin Dm 200/20/10 Ml 10 Ml Syrup) 10 ml PO Q4H PRN PRN Reason: Cough Hydralazine HCl (Hydralazine Hcl 25 Mg Tablet) 25 mg PO TID [facility]; Protocol Last Admin: 10/12/22 10:06 Dose: 25 mg Lorazepam (Lorazepam 0.5 Mg Tablet) 0.5 mg PO Q12H PRN PRN Reason: agitation/severe anxiety Last Admin: 10/11/22 19:57 Dose: 0.5 mg Losartan Potassium (Losartan Potassium 50 Mg Tablet) 100 mg PO DAILY [facility]; Protocol Last Admin: 10/12/22 10:06 Dose: 100 mg Magnesium Hydroxide (Milk Of Magnesia 30 Ml Oral.Susp) 30 ml PO DAILY PRN PRN Reason: Constipation Memantine (Memantine Hcl 10 Mg Tablet) 10 mg PO BID [facility] Last Admin: 10/12/22 10:07 Dose: 10 mg Metoprolol Succinate (Metoprolol Succinate Er 25 Mg Tab.Er.24h) 25 mg PO DAILY [facility]; Protocol Last Admin: 10/12/22 10:06 Dose: 25 mg Mirtazapine (Mirtazapine 15 Mg Tablet) 15 mg PO BEDTIME [facility] Last Admin: 10/11/22 19:57 Dose: 15 mg Olanzapine (Olanzapine 2.5 Mg Tablet) 2.5 mg PO Q4H PRN PRN Reason: agitation Last Admin: 10/10/22 14:57 Dose: 2.5 mg Olanzapine (Olanzapine 5 Mg Tablet) 5 mg PO BEDTIME [facility] Last Admin: 10/11/22 19:57 Dose: 5 mg Omeprazole (Omeprazole 20 Mg Capsule.Dr) 20 mg PO BID [facility] Last Admin: 10/12/22 10:06 Dose: 20 mg Pharmacy Consult (Consult Rx Perform Med Rec) 1 each MISCELLANE ONCE PRN PRN Reason: Consult order Rivastigmine Tartrate (Rivastigmine Tartrate 1.5 Mg Capsule) 1.5 mg PO BID [facility] Last Admin: 10/12/22 10:06 Dose: 1.5 mg Allergies Allergies Allergy/AdvReac Type Severity Reaction Status Date / Time No Known Allergies Allergy Verified 10/06/22 21:57 Assessment & Plan Assessment & Plan (1) Alzheimer's dementia: Qualifiers: Dementia severity: severe Dementia behavioral or psychological symptom: with other behavioral disturbance Status: Acute Code(s): G30.9 - Alzheimer's disease, unspecified; F02.80 - Dementia in other diseases classified elsewhere, unspecified severity, without behavioral disturbance, psychotic disturbance, mood disturbance, and anxiety Plan Mrs. Garcia is a 86 year-old woman with hx of AD dementia, brought to ED due to increase combative behaviors and paranoid delusions. 10/09- continue tx. creatine clearance is 20, finofibrate contraindicated with such low creatine clearance (currently lipid panel wnl, including triglycerides).HCP invoked. Verbal consent to sign CV given to this play writer and Nahomy Cooper. 10/10- pt presents as anxious and at times can be loud due to confusion of not knowing where she is and whether her daughter knows. will add antidepressant for mood. I do think exelon or aricept may have benefit on orientation/mood and may be worth trying. Pt not eating much- will do thumb sewer consult. 10/11 continue tx. This play writer spoke with pt's PCP Dr. 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 given respiratory symptoms- order respiratory panel and chest xr. CBC today without leukocytosis, CMP no electrolyte abnormality, improvement in BUN/Cr and in microcytic anemia. Reason for continued inpatient stay Substantial Risk for: inability to function Time Spent With Patient Time: Total time managing care of this patient today ____ minutes.
[2022-10-12] MEDS: Acetaminophen 325 MG TABLET 650 MG PO (11:15)
[2022-10-12] MEDS: guaiFENesin DM 200/20/10 ML 10 ML SYRUP PO (11:15)
[2022-10-12 12:49] LABS: Influenza A PCR NEGATIVE (Negative); Influenza B PCR NEGATIVE (Negative); Resp Syncy Virus RNA Qual PCR NEGATIVE (Negative); SARS COV2 PCR INHOUSE NEGATIVE (Negative)
[2022-10-12] MEDS: risperiDONE 0.5 MG TABLET PO ×2 (14:48→22:08)
[2022-10-12 18:00] VITALS: BP 135/70; PULSE 84; RESP 16; TEMP 36.7; O2SAT 96
[2022-10-12 22:00] VITALS: BP 140/65; PULSE 84; RESP 83; TEMP 36.7; O2SAT 96
[2022-10-12] MEDS: Atorvastatin Calcium 80 MG TABLET PO (22:05)
[2022-10-12] MEDS: Mirtazapine 15 MG TABLET PO (22:08)
[2022-10-13 07:45] VITALS: BP 84/51; PULSE 101; RESP 16; TEMP 37.3; O2SAT 93
[2022-10-13 09:45] LABS: MANUAL DIFF FLAG NO
[2022-10-13 09:47] LABS: Basophils Percent Auto 0.6 % (0-2); Eosinophils Absolute Auto 0.2 X10*3/uL (0.0-0.4); Hematocrit 28.5 % (37.0-47.0); Hemoglobin 8.9 g/dl (12.0-16.0); Imm Gran Abs Auto 0.03 X10*3/uL (0.00-0.03); Imm Gran Pct Auto 0.4 % (0.0-0.4); Lymphocytes Absolute Auto 1.4 X10*3/uL (1.2-4.9); Lymphocytes Percent Auto 20.6 % (20-40); Mean Corpuscular HGB Conc 31.2 g/dl (31.0-35.0); Mean Corpuscular Hemoglobin 25.1 pg (27.0-33.0); Mean Corpuscular Volume 80.5 fL (80.0-98.0); Mean Platelet Volume 9.1 fL (9.4-12.3); Monocytes Absolute Auto 0.7 X10*3/uL (0.1-1.2); Monocytes Percent Auto 9.4 % (2-11); Neutrophils Absolute Auto 4.6 x10*3/uL (2.0-8.3); Platelet Count 341 X10*3/uL (160-400); Red Blood Count 3.54 X10*6/uL (4.20-5.50); Red Cell Distribution Width 19.4 % (11.0-16.0)
[2022-10-13 09:52] LABS: Ammonia 21 umol/L (13-55)
[2022-10-13 09:55] LABS: Lactic Acid 1.8 mmol/L (0.5-2.0)
[2022-10-13 10:00] LABS: Alanine Aminotransferase 13 U/L (0-31); Albumin Level 3.8 g/dL (3.5-5.0); Alkaline Phosphatase 46 U/L (39-117); Anion Gap 16 (12-20); Aspartate Amino Transferase 21 U/L (5-31); Bilirubin Total 0.3 mg/dL (0.0-1.0); Blood Urea Nitrogen 27 mg/dL (9-16); Calcium 9.7 mg/dL (8.4-10.2); Carbon Dioxide 23 mmol/L (22-29); Chloride 107 mmol/L (96-108); Creatinine Clr Calc Pharmacy 17.9; Estimated Glomerular Filt Rate 26; Glucose Random 154 mg/dL (60-115); Potassium 4.7 mmol/L (3.3-5.1); Sodium 141 mmol/L (135-145); Total Protein 6.5 g/dL (6.5-8.0)
[2022-10-13] MEDS: Memantine HCl 10 MG TABLET PO ×2 (10:37→21:00)
[2022-10-13] MEDS: Rivastigmine Tartrate 1.5 MG CAPSULE PO ×2 (10:38→21:00)
[2022-10-13] MEDS: Omeprazole 20 MG CAPSULE.DR PO ×2 (10:38→21:00)
[2022-10-13] MEDS: Divalproex Sodium Sprinkles 125 MG CAP.DR.SPR PO ×3 (10:38→21:01)
--- NOTE | 2022-10-13 13:02 | PM.EVENT ---
Documented by User: MATTEO Gallagher 10/13/22 13:06 Event Note Date of Service: 10/13/22 Event Note: Patient's labs drawn today reveal JOJO with creatinine of 1.84. Patient resuscitated with 1 L of IVF. Will recheck labs tomorrow. Time Spent With Patient Time: Total time managing care of this patient today ____ minutes. Documented by User: Ilya Sepulveda MD 10/13/22 16:47 Event Note Date of Service: 10/13/22 Event Note: Patient's labs drawn today reveal JOJO with creatinine of 1.84. Patient resuscitated with 1 L of IVF. Will recheck labs tomorrow. please repeat blood pressure after fluids
[2022-10-13] MEDS: 0.9 % Sodium Chloride 1,000 ML 999 ML IV (13:35)
[2022-10-13 14:00] VITALS: BP 133/61; PULSE 105; O2SAT 95
--- NOTE | 2022-10-13 17:18 | P.PNPSI_ITS ---
Subjective Subjective Date of Service: 10/13/22 Reason For Visit: Major depression/Dementia Subjective Notes: Conditional Voluntary Interim History: Pt hypotensive this morning. Ortho HOTN. CBC with no leukocytosis. CMP shows increased Cr 1.8, BUN 27. received IV fluid. Pt reports hearing voice of her daughter and of a little boy calling her name and asking her where she is. Pt yelling I'm in [facility] which she reports she answering the little boy. She denies SI/HI. She is paranoid about some of the medications and when told she needed IV fluids she reports that she was being poisoned. Pt severe memory impairments. no overt combative behaviors. Medication Compliance: Yes Review of Systems Review of Systems patient denies any symptoms Mental Status Exam Mental Status Exam Narrative: Appearance: casually groomed, good hygiene in NAD Behavior: cooperative Psychomotor: no agitation or retardation noted Speech: clear, normal rate/rhythm/volume, spontaneous TP: repetitive TC: no overt delusions, feeling better and confused as to why she is here. Mood: better Affect: congruent SI: denies HI: denies Delusions: none Insight/judgment: impaired x 2. Memory/cog: alert, not oriented to place, month, date, situation. severely impaired. Diagnostics Vital Signs (24Hr): Vital Signs - 24 hr 10/12/22 18:00 10/12/22 22:00 10/13/22 07:45 Temperature 98.0 F 98.0 F 99.2 F Pulse Rate 84 84 101 H Respiratory Rate 16 83 H 16 Blood Pressure 135/70 140/65 H 84/51 L Pulse Oximetry 96 96 93 Oxygen Delivery Method Room Air Room Air Room Air 10/13/22 14:00 Temperature Pulse Rate 105 H Respiratory Rate Blood Pressure 133/61 Pulse Oximetry 95 Oxygen Delivery Method Room Air BMI result Body Mass Index 19.8 Labs 10/13/22 09:39 10/13/22 09:39 Labs: Laboratory Results - last 48 hr 10/12/22 10/12/22 10/12/22 06:10 08:11 10:06 WBC RBC Hgb Hct MCV MCH MCHC RDW Plt Count MPV Immature Gran % (Auto) Neut % (Auto) Lymph % (Auto) [place] % (Auto) Eos % (Auto) Baso % (Auto) Lymph # (Auto) [place] # (Auto) Eos # (Auto) Baso # (Auto) Abs Immat Gran (auto) Absolute Neuts (auto) Absolute Nucleated RBC Nucleated RBC % (auto) Sodium 144 144 Potassium 4.7 4.2 Chloride 108 107 Carbon Dioxide 27 23 Anion Gap 14 18 BUN 17 H 18 H Creatinine 1.29 1.40 Estim Creat Clear Calc 26.4 23.5 Estimated GFR 39 36 Random Glucose 102 Fasting Glucose 159 H Lactic Acid Calcium 9.9 D 9.8 Total Bilirubin 0.5 0.5 AST 21 25 ALT 14 14 Alkaline Phosphatase 45 51 Ammonia Total Protein 6.7 7.2 Albumin 3.9 4.1 COVID-19 (JIAN) Negative COVID-19 Clin Com See Note Influenza Type A (PCR) Influenza Type B (PCR) RSV RNA Qual (PCR) SARS-CoV-2 RNA (RT-PCR) 10/12/22 10/12/22 10/13/22 10:14 11:18 09:39 WBC 8.4 7.0 RBC 3.81 L 3.54 L Hgb 9.6 L 8.9 L Hct 31.1 L D 28.5 L MCV 81.6 80.5 MCH 25.2 L 25.1 L MCHC 30.9 L 31.2 RDW 19.4 H 19.4 H Plt Count 407 H 341 MPV 9.3 L 9.1 L Immature Gran % (Auto) 0.4 0.4 Neut % (Auto) 63.2 66.0 Lymph % (Auto) 24.7 20.6 [place] % (Auto) 7.7 9.4 Eos % (Auto) 3.3 3.0 Baso % (Auto) 0.7 0.6 Lymph # (Auto) 2.1 1.4 [place] # (Auto) 0.7 0.7 Eos # (Auto) 0.3 0.2 Baso # (Auto) 0.1 0.0 Abs Immat Gran (auto) 0.03 0.03 Absolute Neuts (auto) 5.3 4.6 Absolute Nucleated RBC 0.000 0.000 Nucleated RBC % (auto) 0.0 0.0 Sodium Potassium Chloride Carbon Dioxide Anion Gap BUN Creatinine Estim Creat Clear Calc Estimated GFR Random Glucose Fasting Glucose Lactic Acid Calcium Total Bilirubin AST ALT Alkaline Phosphatase Ammonia Total Protein Albumin COVID-19 (JIAN) COVID-19 Clin Com Influenza Type A (PCR) NEGATIVE Influenza Type B (PCR) NEGATIVE RSV RNA Qual (PCR) NEGATIVE SARS-CoV-2 RNA (RT-PCR) NEGATIVE 10/13/22 10/13/22 10/13/22 09:39 09:39 09:39 WBC RBC Hgb Hct MCV MCH MCHC RDW Plt Count MPV Immature Gran % (Auto) Neut % (Auto) Lymph % (Auto) [place] % (Auto) Eos % (Auto) Baso % (Auto) Lymph # (Auto) [place] # (Auto) Eos # (Auto) Baso # (Auto) Abs Immat Gran (auto) Absolute Neuts (auto) Absolute Nucleated RBC Nucleated RBC % (auto) Sodium 141 Potassium 4.7 Chloride 107 Carbon Dioxide 23 Anion Gap 16 BUN 27 H Creatinine 1.84 H Estim Creat Clear Calc 17.9 Estimated GFR 26 Random Glucose 154 H Fasting Glucose Lactic Acid 1.8 Calcium 9.7 Total Bilirubin 0.3 AST 21 ALT 13 Alkaline Phosphatase 46 Ammonia 21 Total Protein 6.5 Albumin 3.8 COVID-19 (JIAN) COVID-19 Clin Com Influenza Type A (PCR) Influenza Type B (PCR) RSV RNA Qual (PCR) SARS-CoV-2 RNA (RT-PCR) Imaging Radiology Impressions: ITS Impressions Chest X-Ray 10/12/22 06:00 IMPRESSION: Clear lungs Chest CT 10/12/22 14:30 IMPRESSION: 1. A 4 mm noncalcified nodule is seen at the medial right apex, with adjacent focal pleural and parenchymal scarring. According to the UPDATED 2017 Fleischner Society recommendations, the advised follow-up imaging for solid nodules < 6 mm is: LOW RISK PATIENT: No routine follow-up. HIGH RISK PATIENT: Optional CT at 12 months. 2. No mass, infiltrate or groundglass opacity is seen. 3. There is no thoracic lymphadenopathy or pleural effusion. 4. There are degenerative changes of the spine. No aggressive osseous lesion is seen. 5. There is a very large hiatus hernia. Fleischner guidelines were followed. Medications Medications Current Medications Acetaminophen (Acetaminophen 325 Mg Tablet) 650 mg PO Q6H PRN PRN Reason: Headache/Pain Mild Scale (1-3) Last Admin: 10/12/22 11:15 Dose: 650 mg Al Hydroxide/Mg Hydroxide (Magnesium Hydrox/Alum Hydrox 30 Ml Oral.Susp) 30 ml PO Q6H PRN PRN Reason: Heartburn/Nausea Amlodipine Besylate (Amlodipine Besylate 5 Mg Tablet) 5 mg PO DAILY [facility]; Protocol Last Admin: 10/13/22 10:36 Dose: Not Given Atorvastatin Calcium (Atorvastatin Calcium 80 Mg Tablet) 80 mg PO BEDTIME [facility] [place] Last Admin: 10/12/22 22:05 Dose: 80 mg Divalproex Sodium (Divalproex Sodium Sprinkles 125 Mg Cap.) 125 mg PO TID [facility] [place] Last Admin: 10/13/22 16:05 Dose: 125 mg Ferrous Sulfate (Ferrous Sulfate 300 Mg/5 Ml Liquid) 300 mg PO Q48H [facility] Last Admin: 10/12/22 17:36 Dose: Not Given Guaifenesin/Dextromethorphan (Guaifenesin Dm 200/20/10 Ml 10 Ml Syrup) 10 ml PO Q4H PRN PRN Reason: Cough Last Admin: 10/12/22 11:15 Dose: 10 ml Hydralazine HCl (Hydralazine Hcl 25 Mg Tablet) 25 mg PO TID [facility]; Protocol Last Admin: 10/13/22 10:36 Dose: Not Given Lorazepam (Lorazepam 0.5 Mg Tablet) 0.5 mg PO Q12H PRN PRN Reason: agitation/severe anxiety Last Admin: 10/11/22 19:57 Dose: 0.5 mg Losartan Potassium (Losartan Potassium 50 Mg Tablet) 100 mg PO DAILY [facility]; Protocol Last Admin: 10/13/22 10:37 Dose: Not Given Magnesium Hydroxide (Milk Of Magnesia 30 Ml Oral.Susp) 30 ml PO DAILY PRN PRN Reason: Constipation Memantine (Memantine Hcl 10 Mg Tablet) 10 mg PO BID [facility] [place] Last Admin: 10/13/22 10:37 Dose: 10 mg Metoprolol Succinate (Metoprolol Succinate Er 25 Mg Tab.Er.24h) 25 mg PO DAILY [facility]; Protocol Last Admin: 10/13/22 10:37 Dose: Not Given Mirtazapine (Mirtazapine 15 Mg Tablet) 15 mg PO BEDTIME [facility] Last Admin: 10/12/22 22:08 Dose: 15 mg Olanzapine (Olanzapine 2.5 Mg Tablet) 2.5 mg PO Q4H PRN PRN Reason: agitation Last Admin: 10/10/22 14:57 Dose: 2.5 mg Omeprazole (Omeprazole 20 Mg Capsule.) 20 mg PO BID [facility] Last Admin: 10/13/22 10:38 Dose: 20 mg Pharmacy Consult (Consult Rx Perform Med Rec) 1 each MISCELLANE ONCE PRN PRN Reason: Consult order Risperidone (Risperidone 1 Mg Tablet) 1 mg PO BID [facility] Rivastigmine Tartrate (Rivastigmine Tartrate 1.5 Mg Capsule) 1.5 mg PO BID [facility] Last Admin: 10/13/22 10:38 Dose: 1.5 mg Allergies Allergies Allergy/AdvReac Type Severity Reaction Status Date / Time No Known Allergies Allergy Verified 10/06/22 21:57 Assessment & Plan Assessment & Plan (1) Alzheimer's dementia: Qualifiers: Dementia behavioral or psychological symptom: with other behavioral disturbance Dementia severity: severe Status: Acute Code(s): G30.9 - Alzheimer's disease, unspecified; F02.80 - Dementia in other diseases classified elsewhere, unspecified severity, without behavioral disturbance, psychotic disturbance, mood disturbance, and anxiety Plan Mrs. Garcia is a 86 year-old woman with hx of AD dementia, brought to ED due to increase combative behaviors and paranoid delusions. 10/09- continue tx. creatine clearance is 20, finofibrate contraindicated with such low creatine clearance (currently lipid panel wnl, including triglycerid es).HCP invoked. Verbal consent to sign CV given to this customs entry writer and Nahomy Cooper. 10/10- pt presents as anxious and at times can be loud due to confusion of not knowing where she is and whether her daughter knows. will add antidepressant for mood. I do think exelon or aricept may have benefit on orientation/mood and may be worth trying. Pt not eating much- will do internal medicine nurse consult. 10/11 continue tx. This customs entry writer spoke with pt's PCP Dr. 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 given respiratory symptoms- order respiratory panel and chest xr. CBC today without leukocytosis, CMP no electrolyte abnormality, improvement in BUN/Cr and in microcytic anemia. 10/13 hypotensive, received IV fluids given elevation of BUN 28, Cr 1.8. BP improved. Pt hearing voices, increase risperidone 1mg po BID. held htn meds and may resume tomorrow if BP stable. Guardian/Caregiver educated on: diagnosis Informed Consent: understands Reason for continued inpatient stay Substantial Risk for: inability to function Time Spent With Patient Time: Total time managing care of this patient today ____ minutes.
[2022-10-13 18:00] VITALS: BP 159/83; PULSE 112; RESP 18; TEMP 36.4; O2SAT 97
--- NOTE | 2022-10-13 19:00 | PC.NURSE ---
WHEN THIS RN TOOK PT.'S VS THIS MORNING AND THEY WERE FOLLOWS: 84/51, 101, 93%. KRISSY GARNER NP ORDERED 1000ML [facility] (PLEASE SEE LAB NOTES FOR ADDITIONAL INFORMATION). NS INFUSED WITHOUT CONCERN. AFTER INFUSION WAS 1/2 WAY COMPLETE, VS WERE FOLLOWS: 133/61, 105, 95%-THIS WAS REPORTED TO KRISSY GARNER NP AT THAT TIME. PT. CURRENTLY RELAXING WITH PEERS WITHOUT CONCERN. MORE LABS TO FOLLOW TOMORROW MORNING.
[2022-10-13] MEDS: Atorvastatin Calcium 80 MG TABLET PO (21:00)
[2022-10-13] MEDS: Mirtazapine 15 MG TABLET PO (21:00)
[2022-10-13] MEDS: risperiDONE 1 MG TABLET PO (21:00)
[2022-10-14 07:13] LABS: Anion Gap 10 (12-20); Blood Urea Nitrogen 29 mg/dL (9-16); Calcium 9.1 mg/dL (8.4-10.2); Carbon Dioxide 25 mmol/L (22-29); Chloride 113 mmol/L (96-108); Creatinine Clr Calc Pharmacy 29.3; Estimated Glomerular Filt Rate 46; Glucose Random 106 mg/dL (60-115); Sodium 143 mmol/L (135-145)
[2022-10-14 08:57] VITALS: BP 135/63; PULSE 103; RESP 20; TEMP 36.5; O2SAT 96
[2022-10-14] MEDS: risperiDONE 1 MG TABLET PO ×2 (09:01→21:06)
[2022-10-14] MEDS: Losartan Potassium 50 MG TABLET 100 MG PO (09:01)
[2022-10-14] MEDS: Memantine HCl 10 MG TABLET PO ×2 (09:01→21:05)
[2022-10-14] MEDS: hydrALAZINE HCl 25 MG TABLET PO ×3 (09:01→21:06)
[2022-10-14] MEDS: Divalproex Sodium Sprinkles 125 MG CAP.DR.SPR PO ×3 (09:01→21:06)
[2022-10-14] MEDS: amLODIPine Besylate 5 MG TABLET PO (09:01)
[2022-10-14] MEDS: Rivastigmine Tartrate 1.5 MG CAPSULE PO ×2 (09:01→21:05)
[2022-10-14] MEDS: Metoprolol Succinate ER 25 MG TAB.ER.24H PO (09:01)
[2022-10-14] MEDS: Omeprazole 20 MG CAPSULE.DR PO ×2 (09:01→21:05)
--- NOTE | 2022-10-14 11:14 | PM.EVENT ---
Event Note Date of Service: 10/14/22 Event Note: F/U for pt with JOJO given 1L of IVF yesterday. Pt's labs today JOJO resolved with creatinine of 1.12. Continue to encourage po fluids. Will sign off at this time. Time Spent With Patient Time: Total time managing care of this patient today ____ minutes.
--- NOTE | 2022-10-14 12:20 | P.PNPSI_ITS ---
Subjective Subjective Date of Service: 10/14/22 Reason For Visit: Major depression/Dementia Subjective Notes: Conditional Voluntary Healthcare Proxy: Yes Interim History: Patient was seen and discussed in rounds today. Records and plans were reviewed. She continues to struggle with cognitive difficulties, calling out and getting fixated on certain delusions. She has been manageable with no behavioral issues. Cognitively is impaired. Eating and sleeping adequately. Review of Systems Review of Systems Yes Unobtainable due to mental status Mental Status Exam Mental Status Exam Narrative: Appearance: casually groomed, good hygiene in NAD Behavior: cooperative Psychomotor: no agitation or retardation noted Speech: clear, normal rate/rhythm/volume, spontaneous TP: repetitive TC: no overt delusions, feeling better and confused as to why she is here. Mood: better Affect: congruent SI: denies HI: denies Delusions: none Insight/judgment: impaired x 2. Memory/cog: alert, not oriented to place, month, date, situation. severely impaired. Diagnostics Vital Signs (24Hr): Vital Signs - 24 hr 10/13/22 14:00 10/13/22 18:00 10/14/22 08:57 Temperature 97.6 F 97.7 F Pulse Rate 105 H 112 H 103 H Respiratory Rate 18 20 Blood Pressure 133/61 159/83 H 135/63 Pulse Oximetry 95 97 96 Oxygen Delivery Method Room Air Room Air Room Air BMI result Body Mass Index 19.8 Labs 10/13/22 09:39 10/14/22 06:52 Labs: Laboratory Results - last 48 hr 10/12/22 10/13/22 10/13/22 11:18 09:39 09:39 WBC 7.0 RBC 3.54 L Hgb 8.9 L Hct 28.5 L MCV 80.5 MCH 25.1 L MCHC 31.2 RDW 19.4 H Plt Count 341 MPV 9.1 L Immature Gran % (Auto) 0.4 Neut % (Auto) 66.0 Lymph % (Auto) 20.6 Overton % (Auto) 9.4 Eos % (Auto) 3.0 Baso % (Auto) 0.6 Lymph # (Auto) 1.4 Overton # (Auto) 0.7 Eos # (Auto) 0.2 Baso # (Auto) 0.0 Abs Immat Gran (auto) 0.03 Absolute Neuts (auto) 4.6 Absolute Nucleated RBC 0.000 Nucleated RBC % (auto) 0.0 Sodium 141 Potassium 4.7 Chloride 107 Carbon Dioxide 23 Anion Gap 16 BUN 27 H Creatinine 1.84 H Estim Creat Clear Calc 17.9 Estimated GFR 26 Random Glucose 154 H Lactic Acid Calcium 9.7 Total Bilirubin 0.3 AST 21 ALT 13 Alkaline Phosphatase 46 Ammonia Total Protein 6.5 Albumin 3.8 Influenza Type A (PCR) NEGATIVE Influenza Type B (PCR) NEGATIVE RSV RNA Qual (PCR) NEGATIVE SARS-CoV-2 RNA (RT-PCR) NEGATIVE 10/13/22 10/13/22 10/14/22 09:39 09:39 06:52 WBC RBC Hgb Hct MCV MCH MCHC RDW Plt Count MPV Immature Gran % (Auto) Neut % (Auto) Lymph % (Auto) Overton % (Auto) Eos % (Auto) Baso % (Auto) Lymph # (Auto) Overton # (Auto) Eos # (Auto) Baso # (Auto) Abs Immat Gran (auto) Absolute Neuts (auto) Absolute Nucleated RBC Nucleated RBC % (auto) Sodium 143 Potassium 5.0 Chloride 113 H Carbon Dioxide 25 Anion Gap 10 L BUN 29 H Creatinine 1.12 Estim Creat Clear Calc 29.3 Estimated GFR 46 Random Glucose 106 Lactic Acid 1.8 Calcium 9.1 D Total Bilirubin AST ALT Alkaline Phosphatase Ammonia 21 Total Protein Albumin Influenza Type A (PCR) Influenza Type B (PCR) RSV RNA Qual (PCR) SARS-CoV-2 RNA (RT-PCR) Imaging Radiology Impressions: ITS Impressions Chest X-Ray 10/12/22 06:00 IMPRESSION: Clear lungs Chest CT 10/12/22 14:30 IMPRESSION: 1. A 4 mm noncalcified nodule is seen at the medial right apex, with adjacent focal pleural and parenchymal scarring. According to the UPDATED 2017 Fleischner Society recommendations, the advised follow-up imaging for solid nodules < 6 mm is: LOW RISK PATIENT: No routine follow-up. HIGH RISK PATIENT: Optional CT at 12 months. 2. No mass, infiltrate or groundglass opacity is seen. 3. There is no thoracic lymphadenopathy or pleural effusion. 4. There are degenerative changes of the spine. No aggressive osseous lesion is seen. 5. There is a very large hiatus hernia. Fleischner guidelines were followed. Medications Medications Current Medications Acetaminophen (Acetaminophen 325 Mg Tablet) 650 mg PO Q6H PRN PRN Reason: Headache/Pain Mild Scale (1-3) Last Admin: 10/12/22 11:15 Dose: 650 mg Al Hydroxide/Mg Hydroxide (Magnesium Hydrox/Alum Hydrox 30 Ml Oral.Susp) 30 ml PO Q6H PRN PRN Reason: Heartburn/Nausea Amlodipine Besylate (Amlodipine Besylate 5 Mg Tablet) 5 mg PO DAILY [facility]; Protocol Last Admin: 10/14/22 09:01 Dose: 5 mg Atorvastatin Calcium (Atorvastatin Calcium 80 Mg Tablet) 80 mg PO BEDTIME [facility] Last Admin: 10/13/22 21:00 Dose: 80 mg Divalproex Sodium (Divalproex Sodium Sprinkles 125 Mg Cap.) 125 mg PO TID [facility] Last Admin: 10/14/22 09:01 Dose: 125 mg Ferrous Sulfate (Ferrous Sulfate 300 Mg/5 Ml Liquid) 300 mg PO Q48H [facility] Last Admin: 10/12/22 17:36 Dose: Not Given Guaifenesin/Dextromethorphan (Guaifenesin Dm 200/20/10 Ml 10 Ml Syrup) 10 ml PO Q4H PRN PRN Reason: Cough Last Admin: 10/12/22 11:15 Dose: 10 ml Hydralazine HCl (Hydralazine Hcl 25 Mg Tablet) 25 mg PO TID [facility]; Protocol Last Admin: 10/14/22 09:01 Dose: 25 mg Lorazepam (Lorazepam 0.5 Mg Tablet) 0.5 mg PO Q12H PRN PRN Reason: agitation/severe anxiety Last Admin: 10/11/22 19:57 Dose: 0.5 mg Losartan Potassium (Losartan Potassium 50 Mg Tablet) 100 mg PO DAILY [facility]; Protocol Last Admin: 10/14/22 09:01 Dose: 100 mg Magnesium Hydroxide (Milk Of Magnesia 30 Ml Oral.Susp) 30 ml PO DAILY PRN PRN Reason: Constipation Memantine (Memantine Hcl 10 Mg Tablet) 10 mg PO BID [facility] Last Admin: 10/14/22 09:01 Dose: 10 mg Metoprolol Succinate (Metoprolol Succinate Er 25 Mg Tab.Er.24h) 25 mg PO DAILY [facility]; Protocol Last Admin: 10/14/22 09:01 Dose: 25 mg Mirtazapine (Mirtazapine 15 Mg Tablet) 15 mg PO BEDTIME [facility] Last Admin: 10/13/22 21:00 Dose: 15 mg Olanzapine (Olanzapine 2.5 Mg Tablet) 2.5 mg PO Q4H PRN PRN Reason: agitation Last Admin: 10/10/22 14:57 Dose: 2.5 mg Omeprazole (Omeprazole 20 Mg Capsule.) 20 mg PO BID [facility] Last Admin: 10/14/22 09:01 Dose: 20 mg Pharmacy Consult (Consult Rx Perform Med Rec) 1 each MISCELLANE ONCE PRN PRN Reason: Consult order Risperidone (Risperidone 1 Mg Tablet) 1 mg PO BID [facility] Last Admin: 10/14/22 09:01 Dose: 1 mg Rivastigmine Tartrate (Rivastigmine Tartrate 1.5 Mg Capsule) 1.5 mg PO BID [facility] Last Admin: 10/14/22 09:01 Dose: 1.5 mg Allergies Allergies Allergy/AdvReac Type Severity Reaction Status Date / Time No Known Allergies Allergy Verified 10/06/22 21:57 Assessment & Plan Assessment & Plan (1) Alzheimer's dementia: Qualifiers: Dementia severity: severe Dementia behavioral or psychological symptom: with other behavioral disturbance Status: Acute Code(s): G30.9 - Alzheimer's disease, unspecified; F02.80 - Dementia in other diseases classified elsewhere, unspecified severity, without behavioral disturbance, psychotic disturbance, mood disturbance, and anxiety Plan Mrs. Garcia is a 86 year-old woman with hx of AD dementia, brought to ED due to increase combative behaviors and paranoid delusions. 10/09- continue tx. creatine clearance is 20, finofibrate contraindicated with such low creatine clearance (currently lipid panel wnl, including triglycerides).HCP invoked. Verbal consent to sign CV given to this director underwriter sales and Nahomy Cooper. 10/10- pt presents as anxious and at times can be loud due to confusion of not knowing where she is and whether her daughter knows. will add antidepressant for mood. I do think exelon or aricept may have benefit on orientation/mood and may be worth trying. Pt not eating much- will do technical laboratory asst consult. 10/11 continue tx. This director underwriter sales spoke with pt's PCP Dr. 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 given respiratory symptoms- order respiratory panel and chest xr. CBC today without leukocytosis, CMP no electrolyte abnormality, improvement in B UN/Cr and in microcytic anemia. 10/13 hypotensive, received IV fluids given elevation of BUN 28, Cr 1.8. BP improved. Pt hearing voices, increase risperidone 1mg po BID. held htn meds and may resume tomorrow if BP stable. 10/14: Continue current regimen and plans Reason for continued inpatient stay Substantial Risk for: inability to function Time Spent With Patient Time: Total time managing care of this patient today ____ minutes.
[2022-10-14] MEDS: Ferrous Sulfate 300 MG/5 ML LIQUID PO (16:35)
[2022-10-14 18:00] VITALS: BP 126/59; PULSE 91; RESP 18; TEMP 36.4; O2SAT 94
[2022-10-14] MEDS: Mirtazapine 15 MG TABLET PO (21:05)
[2022-10-14] MEDS: Atorvastatin Calcium 80 MG TABLET PO (21:05)
[2022-10-15 08:00] VITALS: BP 139/63; PULSE 80; RESP 18; TEMP 36.4; O2SAT 99
[2022-10-15] MEDS: Divalproex Sodium Sprinkles 125 MG CAP.DR.SPR PO ×3 (08:18→20:56)
[2022-10-15] MEDS: amLODIPine Besylate 5 MG TABLET PO (08:18)
[2022-10-15] MEDS: Metoprolol Succinate ER 25 MG TAB.ER.24H PO (08:18)
[2022-10-15] MEDS: risperiDONE 1 MG TABLET PO ×2 (08:18→20:55)
[2022-10-15] MEDS: Omeprazole 20 MG CAPSULE.DR PO ×2 (08:18→20:55)
[2022-10-15] MEDS: hydrALAZINE HCl 25 MG TABLET PO ×3 (08:18→20:55)
[2022-10-15] MEDS: Memantine HCl 10 MG TABLET PO ×2 (08:18→20:55)
[2022-10-15] MEDS: Rivastigmine Tartrate 1.5 MG CAPSULE PO ×2 (08:18→20:55)
[2022-10-15] MEDS: Losartan Potassium 50 MG TABLET 100 MG PO (08:18)
--- NOTE | 2022-10-15 11:27 | HO.PSYCHPN ---
Subjective Subjective Date of Service: 10/15/22 Reason For Visit: Major depression/Dementia Subjective Notes: Conditional Voluntary Healthcare Proxy: Yes Interim History: Patient was seen and discussed in rounds today. Records and plans were reviewed. She has been mostly cooperative and compliant with treatment, medications. Eating adequately. Continues to have self dialogue and has been in bed a lot. Sleeping adequately. No hallucinations. She has been afebrile. No complaints or side effects. No changes were made Mental Status Exam Mental Status Exam Narrative: In today's visit she is alert, oriented X 2. Normal speech. Moderate eye contact. Affect is appropriate and constricted. No signs of psychosis. No SI. Cognitively impaired. Judgment is impaired Diagnostics Vital Signs (24Hr): Vital Signs - 24 hr 10/14/22 18:00 10/15/22 08:00 Temperature 97.5 F 97.6 F Pulse Rate 91 80 Respiratory Rate 18 18 Blood Pressure 126/59 L 139/63 Pulse Oximetry 94 99 Oxygen Delivery Method Room Air Room Air BMI result Body Mass Index 19.8 Labs 10/13/22 09:39 10/14/22 06:52 Labs: Laboratory Results - last 48 hr 10/14/22 06:52 Sodium 143 Potassium 5.0 Chloride 113 H Carbon Dioxide 25 Anion Gap 10 L BUN 29 H Creatinine 1.12 Estim Creat Clear Calc 29.3 Estimated GFR 46 Random Glucose 106 Calcium 9.1 D Imaging Radiology Impressions: ITS Impressions Chest X-Ray 10/12/22 06:00 IMPRESSION: Clear lungs Chest CT 10/12/22 14:30 IMPRESSION: 1. A 4 mm noncalcified nodule is seen at the medial right apex, with adjacent focal pleural and parenchymal scarring. According to the UPDATED 2017 Fleischner Society recommendations, the advised follow-up imaging for solid nodules < 6 mm is: LOW RISK PATIENT: No routine follow-up. HIGH RISK PATIENT: Optional CT at 12 months. 2. No mass, infiltrate or groundglass opacity is seen. 3. There is no thoracic lymphadenopathy or pleural effusion. 4. There are degenerative changes of the spine. No aggressive osseous lesion is seen. 5. There is a very large hiatus hernia. Fleischner guidelines were followed. Medications Medications Current Medications Acetaminophen (Acetaminophen 325 Mg Tablet) 650 mg PO Q6H PRN PRN Reason: Headache/Pain Mild Scale (1-3) Last Admin: 10/12/22 11:15 Dose: 650 mg Al Hydroxide/Mg Hydroxide (Magnesium Hydrox/Alum Hydrox 30 Ml Oral.Susp) 30 ml PO Q6H PRN PRN Reason: Heartburn/Nausea Amlodipine Besylate (Amlodipine Besylate 5 Mg Tablet) 5 mg PO DAILY [facility]; Protocol Last Admin: 10/15/22 08:18 Dose: 5 mg Atorvastatin Calcium (Atorvastatin Calcium 80 Mg Tablet) 80 mg PO BEDTIME [facility] Last Admin: 10/14/22 21:05 Dose: 80 mg Divalproex Sodium (Divalproex Sodium Sprinkles 125 Mg Cap.) 125 mg PO TID [facility] Last Admin: 10/15/22 08:18 Dose: 125 mg Ferrous Sulfate (Ferrous Sulfate 300 Mg/5 Ml Liquid) 300 mg PO Q48H [facility] Last Admin: 10/14/22 16:35 Dose: 300 mg Guaifenesin/Dextromethorphan (Guaifenesin Dm 200/20/10 Ml 10 Ml Syrup) 10 ml PO Q4H PRN PRN Reason: Cough Last Admin: 10/12/22 11:15 Dose: 10 ml Hydralazine HCl (Hydralazine Hcl 25 Mg Tablet) 25 mg PO TID [facility]; Protocol Last Admin: 10/15/22 08:18 Dose: 25 mg Lorazepam (Lorazepam 0.5 Mg Tablet) 0.5 mg PO Q12H PRN PRN Reason: agitation/severe anxiety Last Admin: 10/11/22 19:57 Dose: 0.5 mg Losartan Potassium (Losartan Potassium 50 Mg Tablet) 100 mg PO DAILY [facility]; Protocol Last Admin: 10/15/22 08:18 Dose: 100 mg Magnesium Hydroxide (Milk Of Magnesia 30 Ml Oral.Susp) 30 ml PO DAILY PRN PRN Reason: Constipation Memantine (Memantine Hcl 10 Mg Tablet) 10 mg PO BID [facility] Last Admin: 10/15/22 08:18 Dose: 10 mg Metoprolol Succinate (Metoprolol Succinate Er 25 Mg Tab.Er.24h) 25 mg PO DAILY [facility]; Protocol Last Admin: 10/15/22 08:18 Dose: 25 mg Mirtazapine (Mirtazapine 15 Mg Tablet) 15 mg PO BEDTIME [facility] Last Admin: 10/14/22 21:05 Dose: 15 mg Olanzapine (Olanzapine 2.5 Mg Tablet) 2.5 mg PO Q4H PRN PRN Reason: agitation Last Admin: 10/10/22 14:57 Dose: 2.5 mg Omeprazole (Omeprazole 20 Mg Capsule.) 20 mg PO BID [facility] Last Admin: 10/15/22 08:18 Dose: 20 mg Pharmacy Consult (Consult Rx Perform Med Rec) 1 each MISCELLANE ONCE PRN PRN Reason: Consult order Risperidone (Risperidone 1 Mg Tablet) 1 mg PO BID [facility] Last Admin: 10/15/22 08:18 Dose: 1 mg Rivastigmine Tartrate (Rivastigmine Tartrate 1.5 Mg Capsule) 1.5 mg PO BID [facility] Last Admin: 10/15/22 08:18 Dose: 1.5 mg Allergies Allergies Allergy/AdvReac Type Severity Reaction Status Date / Time No Known Allergies Allergy Verified 10/06/22 21:57 Assessment & Plan Assessment & Plan (1) Alzheimer's dementia: Qualifiers: Dementia severity: severe Dementia behavioral or psychological symptom: with other behavioral disturbance Status: Acute Code(s): G30.9 - Alzheimer's disease, unspecified; F02.80 - Dementia in other diseases classified elsewhere, unspecified severity, without behavioral disturbance, psychotic disturbance, mood disturbance, and anxiety Plan Mrs. Garcia is a 86 year-old woman with hx of AD dementia, brought to ED due to increase combative behaviors and paranoid delusions. 10/09- continue tx. creatine clearance is 20, finofibrate contraindicated with such low creatine clearance (currently lipid panel wnl, including triglycerides).HCP invoked. Verbal consent to sign CV given to this writer technical publications and Nahomy Cooper. 10/10- pt presents as anxious and at times can be loud due to confusion of not knowing where she is and whether her daughter knows. will add antidepressant for mood. I do think exelon or aricept may have benefit on orientation/mood and may be worth trying. Pt not eating much- will do java lead architect consult. 10/11 continue tx. This writer technical publications spoke with pt's PCP Dr. 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 given respiratory symptoms- order respiratory panel and chest xr. CBC today without leukocytosis, CMP no electrolyte abnormality, improvement in BUN/Cr and in microcytic anemia. 10/13 hypotensive, received IV fluids given elevation of BUN 28, Cr 1.8. BP improved. Pt hearing voices, increase risperidone 1mg po BID. held htn meds and may resume tomorrow if BP stable. 10/14: Continue current regimen and plans 10/15: Continue current regimen and plans Reason for continued inpatient stay Substantial Risk for: inability to function Time Spent With Patient Time: Total time managing care of this patient today ____ minutes.
[2022-10-15 18:00] VITALS: BP 111/56; PULSE 75; RESP 16; TEMP 36.2; O2SAT 96
[2022-10-15] MEDS: Atorvastatin Calcium 80 MG TABLET PO (20:55)
[2022-10-15] MEDS: Mirtazapine 15 MG TABLET PO (20:55)
[2022-10-16 10:00] VITALS: BP 116/57; PULSE 80; RESP 16; TEMP 36.2; O2SAT 94
[2022-10-16] MEDS: Memantine HCl 10 MG TABLET PO ×2 (10:40→20:48)
[2022-10-16] MEDS: Omeprazole 20 MG CAPSULE.DR PO ×2 (10:40→20:48)
[2022-10-16] MEDS: Rivastigmine Tartrate 1.5 MG CAPSULE PO ×2 (10:40→20:48)
[2022-10-16] MEDS: Divalproex Sodium Sprinkles 125 MG CAP.DR.SPR PO ×3 (10:41→20:47)
[2022-10-16] MEDS: risperiDONE 1 MG TABLET PO ×2 (10:41→20:48)
[2022-10-16] MEDS: hydrALAZINE HCl 25 MG TABLET PO ×2 (15:28→20:47)
--- NOTE | 2022-10-16 16:01 | P.PNPSI_ITS ---
Subjective Subjective Date of Service: 10/16/22 Reason For Visit: Major depression/Dementia Subjective Notes: Conditional Voluntary Healthcare Proxy: Yes Interim History: Per nursing, pt slept through the night. No behavioral concerns. Pt continues to present as confused in that she is not sure where she is and whether her daughter knows where she is. She needs reminders that her daughter knows where she is and why she is here. She continues to report hearing voices calling her name- at times reports hearing her daughter's voice and others a little boy's voice. VS- low BP this morning 116/57, HR 80. HTN meds held this morning. continue to monitor. Review of Systems Review of Systems patient denies any symptoms Yes Unobtainable due to mental status Mental Status Exam Mental Status Exam Narrative: Appearance: casually groomed, good hygiene in NAD Behavior: cooperative Psychomotor: no agitation or retardation noted Speech: clear, normal rate/rhythm/volume, spontaneous TP: repetitive TC: no overt delusions, feeling better and confused as to why she is here. Mood: better Affect: congruent SI: denies HI: denies Delusions: none Insight/judgment: impaired x 2. Memory/cog: alert, not oriented to place, month, date, situation. severely impaired. Diagnostics Vital Signs (24Hr): Vital Signs - 24 hr 10/15/22 18:00 10/16/22 10:00 Temperature 97.2 F 97.2 F Pulse Rate 75 80 Respiratory Rate 16 16 Blood Pressure 111/56 L 116/57 L Pulse Oximetry 96 94 Oxygen Delivery Method Room Air Room Air BMI result Body Mass Index 19.8 Labs 10/13/22 09:39 10/14/22 06:52 Imaging Radiology Impressions: ITS Impressions Chest X-Ray 10/12/22 06:00 IMPRESSION: Clear lungs Chest CT 10/12/22 14:30 IMPRESSION: 1. A 4 mm noncalcified nodule is seen at the medial right apex, with adjacent focal pleural and parenchymal scarring. According to the UPDATED 2017 Fleischner Society recommendations, the advised follow-up imaging for solid nodules < 6 mm is: LOW RISK PATIENT: No routine follow-up. HIGH RISK PATIENT: Optional CT at 12 months. 2. No mass, infiltrate or groundglass opacity is seen. 3. There is no thoracic lymphadenopathy or pleural effusion. 4. There are degenerative changes of the spine. No aggressive osseous lesion is seen. 5. There is a very large hiatus hernia. Fleischner guidelines were followed. Medications Medications Current Medications Acetaminophen (Acetaminophen 325 Mg Tablet) 650 mg PO Q6H PRN PRN Reason: Headache/Pain Mild Scale (1-3) Last Admin: 10/12/22 11:15 Dose: 650 mg Al Hydroxide/Mg Hydroxide (Magnesium Hydrox/Alum Hydrox 30 Ml Oral.Susp) 30 ml PO Q6H PRN PRN Reason: Heartburn/Nausea Amlodipine Besylate (Amlodipine Besylate 5 Mg Tablet) 5 mg PO DAILY [facility]; Protocol Last Admin: 10/16/22 10:40 Dose: Not Given Atorvastatin Calcium (Atorvastatin Calcium 80 Mg Tablet) 80 mg PO BEDTIME [facility] Last Admin: 10/15/22 20:55 Dose: 80 mg Divalproex Sodium (Divalproex Sodium Sprinkles 125 Mg Cap.) 125 mg PO TID [facility] Last Admin: 10/16/22 15:30 Dose: 125 mg Ferrous Sulfate (Ferrous Sulfate 300 Mg/5 Ml Liquid) 300 mg PO Q48H [facility] Last Admin: 10/14/22 16:35 Dose: 300 mg Guaifenesin/Dextromethorphan (Guaifenesin Dm 200/20/10 Ml 10 Ml Syrup) 10 ml PO Q4H PRN PRN Reason: Cough Last Admin: 10/12/22 11:15 Dose: 10 ml Hydralazine HCl (Hydralazine Hcl 25 Mg Tablet) 25 mg PO TID [facility]; Protocol Last Admin: 10/16/22 15:28 Dose: 25 mg Lorazepam (Lorazepam 0.5 Mg Tablet) 0.5 mg PO Q12H PRN PRN Reason: agitation/severe anxiety Last Admin: 10/11/22 19:57 Dose: 0.5 mg Losartan Potassium (Losartan Potassium 50 Mg Tablet) 100 mg PO DAILY [facility]; Protocol Last Admin: 10/16/22 10:41 Dose: Not Given Magnesium Hydroxide (Milk Of Magnesia 30 Ml Oral.Susp) 30 ml PO DAILY PRN PRN Reason: Constipation Memantine (Memantine Hcl 10 Mg Tablet) 10 mg PO BID [facility] Last Admin: 10/16/22 10:40 Dose: 10 mg Metoprolol Succinate (Metoprolol Succinate Er 25 Mg Tab.Er.24h) 25 mg PO DAILY [facility]; Protocol Last Admin: 10/16/22 10:42 Dose: Not Given Mirtazapine (Mirtazapine 15 Mg Tablet) 15 mg PO BEDTIME [facility] Last Admin: 10/15/22 20:55 Dose: 15 mg Olanzapine (Olanzapine 2.5 Mg Tablet) 2.5 mg PO Q4H PRN PRN Reason: agitation Last Admin: 10/10/22 14:57 Dose: 2.5 mg Omeprazole (Omeprazole 20 Mg Capsule.) 20 mg PO BID [facility] Last Admin: 10/16/22 10:40 Dose: 20 mg Pharmacy Consult (Consult Rx Perform Med Rec) 1 each MISCELLANE ONCE PRN PRN Reason: Consult order Risperidone (Risperidone 1 Mg Tablet) 1 mg PO BID [facility] Last Admin: 10/16/22 10:41 Dose: 1 mg Rivastigmine Tartrate (Rivastigmine Tartrate 1.5 Mg Capsule) 1.5 mg PO BID [facility] Last Admin: 10/16/22 10:40 Dose: 1.5 mg Allergies Allergies Allergy/AdvReac Type Severity Reaction Status Date / Time No Known Allergies Allergy Verified 10/06/22 21:57 Assessment & Plan Assessment & Plan (1) Alzheimer's dementia: Qualifiers: Dementia severity: severe Dementia behavioral or psychological symptom: with other behavioral disturbance Status: Acute Code(s): G30.9 - Alzheimer's disease, unspecified; F02.80 - Dementia in other diseases cl assified elsewhere, unspecified severity, without behavioral disturbance, psychotic disturbance, mood disturbance, and anxiety Plan Mrs. Garcia is a 86 year-old woman with hx of AD dementia, brought to ED due to increase combative behaviors and paranoid delusions. 10/09- continue tx. creatine clearance is 20, finofibrate contraindicated with such low creatine clearance (currently lipid panel wnl, including triglycerides).HCP invoked. Verbal consent to sign CV given to this engineering writer and Nahomy Cooper. 10/10- pt presents as anxious and at times can be loud due to confusion of not knowing where she is and whether her daughter knows. will add antidepressant for mood. I do think exelon or aricept may have benefit on orientation/mood and may be worth trying. Pt not eating much- will do water/wastewater engineer consult. 10/11 continue tx. This engineering writer spoke with pt's PCP [facility]. 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 given respiratory symptoms- order respiratory panel and chest xr. CBC today without leukocytosis, CMP no electrolyte abnormality, improvement in BUN/Cr and in microcytic anemia. 10/13 hypotensive, received IV fluids given elevation of BUN 28, Cr 1.8. BP improved. Pt hearing voices, increase risperidone 1mg po BID. held htn meds and may resume tomorrow if BP stable. 10/14: Continue current regimen and plans 10/15: Continue current regimen and plans 10/16 continue tx. Reason for continued inpatient stay Substantial Risk for: inability to function Time Spent With Patient Time: Total time managing care of this patient today ____ minutes.
[2022-10-16 18:00] VITALS: BP 123/61; PULSE 101; RESP 18; TEMP 36.3; O2SAT 96
[2022-10-16] MEDS: Atorvastatin Calcium 80 MG TABLET PO (20:47)
[2022-10-16] MEDS: Mirtazapine 15 MG TABLET PO (20:48)
[2022-10-17 06:00] VITALS: BP 127/76; PULSE 99; RESP 16; TEMP 35.9; O2SAT 95
[2022-10-17] MEDS: Rivastigmine Tartrate 1.5 MG CAPSULE PO ×2 (10:14→20:14)
[2022-10-17] MEDS: Omeprazole 20 MG CAPSULE.DR PO ×2 (10:15→20:14)
[2022-10-17] MEDS: Memantine HCl 10 MG TABLET PO ×2 (10:15→20:17)
[2022-10-17] MEDS: risperiDONE 1 MG TABLET PO ×2 (10:15→20:15)
[2022-10-17] MEDS: Divalproex Sodium Sprinkles 125 MG CAP.DR.SPR PO ×3 (10:15→20:15)
[2022-10-17] MEDS: hydrALAZINE HCl 25 MG TABLET PO ×3 (10:15→20:14)
[2022-10-17] MEDS: Losartan Potassium 50 MG TABLET 100 MG PO (10:15)
[2022-10-17] MEDS: amLODIPine Besylate 5 MG TABLET PO (10:16)
[2022-10-17] MEDS: Metoprolol Succinate ER 25 MG TAB.ER.24H PO (10:16)
[2022-10-17 15:36] VITALS: BP 130/72; PULSE 106
--- NOTE | 2022-10-17 17:55 | P.PNPSI_ITS ---
Subjective Subjective Date of Service: 10/17/22 Reason For Visit: Major depression/Dementia Subjective Notes: Conditional Voluntary Interim History: Pt presents as pleasant but confused as to where she is and whether her daughter knows where she is. She presents as somewhat anxious, but less dysphoric. Per nursing, pt slept through the night. No behavioral concerns. Medication Compliance: Yes Side effects from medications: No Attending Groups: Intermittent Review of Systems Review of Systems patient denies any symptoms Yes Unobtainable due to mental status Mental Status Exam Mental Status Exam Narrative: Appearance: casually groomed, good hygiene in NAD Behavior: cooperative Psychomotor: no agitation or retardation noted Speech: clear, normal rate/rhythm/volume, spontaneous TP: repetitive TC: no overt delusions, feeling better and confused as to why she is here. Mood: better Affect: congruent SI: denies HI: denies Delusions: none Insight/judgment: impaired x 2. Memory/cog: alert, not oriented to place, month, date, situation. severely impaired. Patient Appearance: Disheveled and Inappropriate Patient Orientation: Person Level of Consciousness: Drowsy Patient Behavior: Impulsive and Sundowning Behavior Comments: other patient came up to tell me she was yelling all last night- Mood Description: Calm and Angry Affect Description: Labile Patient Cognition Impaired: Yes Ability to Follow Directions: Poor Speech Pattern: Clear Diagnostics Vital Signs (24Hr): Vital Signs - 24 hr 10/16/22 18:00 10/17/22 06:00 10/17/22 15:36 Temperature 97.4 F 96.7 F L Pulse Rate 101 H 99 106 H Respiratory Rate 18 16 Blood Pressure 123/61 127/76 130/72 Pulse Oximetry 96 95 Oxygen Delivery Method Room Air Room Air BMI result Body Mass Index 19.8 Labs 10/13/22 09:39 10/14/22 06:52 Imaging Radiology Impressions: ITS Impressions Chest X-Ray 10/12/22 06:00 IMPRESSION: Clear lungs Chest CT 10/12/22 14:30 IMPRESSION: 1. A 4 mm noncalcified nodule is seen at the medial right apex, with adjacent focal pleural and parenchymal scarring. According to the UPDATED 2017 Fleischner Society recommendations, the advised follow-up imaging for solid nodules < 6 mm is: LOW RISK PATIENT: No routine follow-up. HIGH RISK PATIENT: Optional CT at 12 months. 2. No mass, infiltrate or groundglass opacity is seen. 3. There is no thoracic lymphadenopathy or pleural effusion. 4. There are degenerative changes of the spine. No aggressive osseous lesion is seen. 5. There is a very large hiatus hernia. Fleischner guidelines were followed. Medications Medications Current Medications Acetaminophen (Acetaminophen 325 Mg Tablet) 650 mg PO Q6H PRN PRN Reason: Headache/Pain Mild Scale (1-3) Last Admin: 10/12/22 11:15 Dose: 650 mg Al Hydroxide/Mg Hydroxide (Magnesium Hydrox/Alum Hydrox 30 Ml Oral.Susp) 30 ml PO Q6H PRN PRN Reason: Heartburn/Nausea Amlodipine Besylate (Amlodipine Besylate 5 Mg Tablet) 5 mg PO DAILY [facility] [place]; Protocol Last Admin: 10/17/22 10:16 Dose: 5 mg Atorvastatin Calcium (Atorvastatin Calcium 80 Mg Tablet) 80 mg PO BEDTIME [facility] Last Admin: 10/16/22 20:47 Dose: 80 mg Divalproex Sodium (Divalproex Sodium Sprinkles 125 Mg ) 125 mg PO TID [facility] Last Admin: 10/17/22 15:54 Dose: 125 mg Ferrous Sulfate (Ferrous Sulfate 300 Mg/5 Ml Liquid) 300 mg PO Q48H [facility] Last Admin: 10/16/22 16:53 Dose: Not Given Guaifenesin/Dextromethorphan (Guaifenesin Dm 200/20/10 Ml 10 Ml Syrup) 10 ml PO Q4H PRN PRN Reason: Cough Last Admin: 10/12/22 11:15 Dose: 10 ml Hydralazine HCl (Hydralazine Hcl 25 Mg Tablet) 25 mg PO TID [facility] [place]; Protocol Last Admin: 10/17/22 15:54 Dose: 25 mg Lorazepam (Lorazepam 0.5 Mg Tablet) 0.5 mg PO Q12H PRN PRN Reason: agitation/severe anxiety Last Admin: 10/11/22 19:57 Dose: 0.5 mg Losartan Potassium (Losartan Potassium 50 Mg Tablet) 100 mg PO DAILY [facility] [place]; Protocol Last Admin: 10/17/22 10:15 Dose: 100 mg Magnesium Hydroxide (Milk Of Magnesia 30 Ml Oral.Susp) 30 ml PO DAILY PRN PRN Reason: Constipation Memantine (Memantine Hcl 10 Mg Tablet) 10 mg PO BID [facility] Last Admin: 10/17/22 10:15 Dose: 10 mg Metoprolol Succinate (Metoprolol Succinate Er 25 Mg Tab.Er.24h) 25 mg PO DAILY [facility]; Protocol Last Admin: 10/17/22 10:16 Dose: 25 mg Mirtazapine (Mirtazapine 15 Mg Tablet) 15 mg PO BEDTIME [facility] Last Admin: 10/16/22 20:48 Dose: 15 mg Olanzapine (Olanzapine 2.5 Mg Tablet) 2.5 mg PO Q4H PRN PRN Reason: agitation Last Admin: 10/10/22 14:57 Dose: 2.5 mg Omeprazole (Omeprazole 20 Mg Capsule.) 20 mg PO BID [facility] Last Admin: 10/17/22 10:15 Dose: 20 mg Pharmacy Consult (Consult Rx Perform Med Rec) 1 each MISCELLANE ONCE PRN PRN Reason: Consult order Risperidone (Risperidone 1 Mg Tablet) 1 mg PO BID [facility] Last Admin: 10/17/22 10:15 Dose: 1 mg Rivastigmine Tartrate (Rivastigmine Tartrate 1.5 Mg Capsule) 1.5 mg PO BID [facility] Last Admin: 10/17/22 10:14 Dose: 1.5 mg Allergies Allergies Allergy/AdvReac Type Severity Reaction Status Date / Time No Known Allergies Allergy Verified 10/06/22 21:57 Assessment & Plan Assessment & Plan (1) Alzheimer's dementia: Qualifiers: Dementia behavioral or psychological symptom: with other behavioral disturbance Dementia severity: severe Status: Acute Code(s): G30.9 - Alzheimer's disease, unspecified; F02.80 - Dementia in other diseases classified elsewhere, unspecified severity, without behavioral disturbance, psychotic disturbance, mood disturbance, and anxiety Plan Mrs. Garcia is a 86 year-old woman with hx of AD dementia, brought to ED due to increase combative behaviors and paranoid delusions. 10/09- continue tx. creatine clearance is 20, finofibrate contraindicated with such low creatine clearance (currently lipid panel wnl, including triglycerides).HCP invoked. Verbal consent to sign CV given to this insurance underwriter sales and Nahomy Cooper. 10/10- pt presents as anxious and at times can be loud due to confusion of not knowing where she is and whether her daughter knows. will add antidepressant for mood. I do think exelon or aricept may have benefit on orientation/mood and may be worth trying. Pt not eating much- will do diamond sizer and sorter consult. 10/11 continue tx. This insurance underwriter sales spoke with pt's PCP Dr. 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 given respiratory symptoms- order respiratory panel and chest xr. CBC today without leukocytosis, CMP no electrolyte abnormality, improvement in BUN/Cr and in microcytic anemia. 10/13 hypotensive, received IV fluids given elevation of BUN 28, Cr 1.8. BP improved. Pt hearing voices, increase risperidone 1mg po BID. held htn meds and may resume tomorrow if BP stable. 10/14: Continue current regimen and plans 10/15: Continue current regimen and plans 10/16 continue tx. 10/17 continue tx. Reason for continued inpatient stay Substantial Risk for: inability to function Time Spent With Patient Time: Total time managing care of this patient today ____ minutes.
[2022-10-17 18:00] VITALS: BP 148/70; PULSE 114; RESP 20; TEMP 36.4; O2SAT 97
[2022-10-17] MEDS: Mirtazapine 15 MG TABLET PO (20:14)
[2022-10-17] MEDS: Atorvastatin Calcium 80 MG TABLET PO (20:17)
[2022-10-18 07:45] VITALS: BP 141/74; PULSE 106; RESP 15; TEMP 36.8; O2SAT 96
[2022-10-18] MEDS: Losartan Potassium 50 MG TABLET 100 MG PO (08:01)
[2022-10-18] MEDS: Omeprazole 20 MG CAPSULE.DR PO (08:01)
[2022-10-18] MEDS: amLODIPine Besylate 5 MG TABLET PO (08:01)
[2022-10-18] MEDS: Metoprolol Succinate ER 25 MG TAB.ER.24H PO (08:02)
[2022-10-18] MEDS: Memantine HCl 10 MG TABLET PO (08:02)
[2022-10-18] MEDS: Rivastigmine Tartrate 1.5 MG CAPSULE PO (08:02)
[2022-10-18] MEDS: risperiDONE 1 MG TABLET PO (08:02)
[2022-10-18] MEDS: hydrALAZINE HCl 25 MG TABLET PO (08:02)
[2022-10-18] MEDS: Divalproex Sodium Sprinkles 125 MG CAP.DR.SPR PO (08:02)
--- NOTE | 2022-10-18 08:58 | PM.PSYDC ---
DS: Providers Provider Date of Service: 10/18/22 Date of admission: 10/06/22 19:16 Primary care physician: Unknown Physician Consults: 10/06/22 22:00 Consult to Hospitalist Routine Comment: Consulting Provider: Hospitalist Reason For Exam: medical H&P 10/11/22 16:29 Consult to Gastroenterology Routine Consulting Provider: Mendez Leonard Reason for consultation: microcytic anemia ?GI bleed Has provider been notified: Yes DS: Diagnosis Discharge Diagnosis (1) Alzheimer's dementia: Status: Acute DS: Medications Discharge Medications Home Medications: Home Medications Medication Instructions Recorded Confirmed cholecalciferol (vitamin D3) 50 50 mcg PO DAILY 10/07/22 10/07/22 mcg (2,000 unit) capsule Previous Rx's Medication Instructions Recorded acetaminophen 325 mg tablet 650 mg PO Q6H PRN Headache/Pain 10/18/22 Mild Scale (1-3) #0 tabs amlodipine 5 mg tablet 5 mg PO DAILY #0 tabs 10/18/22 atorvastatin 80 mg tablet 80 mg PO BEDTIME #0 tabs 10/18/22 divalproex 125 mg capsule,delayed 125 mg PO TID #0 caps 10/18/22 release sprinkle ferrous sulfate 300 mg (60 mg 300 mg (5 mL) PO Q48H #0 mL 10/18/22 iron)/5 mL oral liquid hydralazine 25 mg tablet 25 mg PO TID #0 tabs 10/18/22 losartan 50 mg tablet 100 mg PO DAILY #0 tabs 10/18/22 memantine 10 mg tablet (Namenda) 10 mg PO BID #0 tabs 10/18/22 metoprolol succinate 25 mg 25 mg PO DAILY #0 tabs 10/18/22 tablet,extended release 24 hr mirtazapine 15 mg tablet 15 mg PO BEDTIME #0 tabs 10/18/22 omeprazole 20 mg capsule,delayed 20 mg PO BID #0 caps 10/18/22 release risperidone 1 mg tablet 1 mg PO BID #0 tabs 10/18/22 rivastigmine tartrate 1.5 mg 1.5 mg PO BID #0 caps 10/18/22 capsule Mental Status Exam Mental Status Exam Narrative: Appearance: casually groomed, good hygiene in NAD Behavior: cooperative Psychomotor: no agitation or retardation noted Speech: clear, normal rate/rhythm/volume, spontaneous TP: repetitive TC: no overt delusions, feeling better and confused as to why she is here. Mood: better Affect: congruent SI: denies HI: denies Delusions: none Insight/judgment: impaired x 2. Memory/cog: alert, not oriented to place, month, date, situation. severely impaired. Data Data Completed and Pending Completed studies during hospitalization [Text1]: 10/12/22 10/12/22 10/12/22 06:10 08:11 10:06 WBC RBC Hgb Hct MCV MCH MCHC RDW Plt Count MPV Immature Gran % (Auto) Neut % (Auto) Lymph % (Auto) Brooke % (Auto) Eos % (Auto) Baso % (Auto) Lymph # (Auto) Brooke # (Auto) Eos # (Auto) Baso # (Auto) Abs Immat Gran (auto) Absolute Neuts (auto) Absolute Nucleated RBC Nucleated RBC % (auto) Sodium 144 144 Potassium 4.7 4.2 Chloride 108 107 Carbon Dioxide 27 23 Anion Gap 14 18 BUN 17 H 18 H Creatinine 1.29 1.40 Estim Creat Clear Calc 26.4 23.5 Estimated GFR 39 36 Random Glucose 102 Fasting Glucose 159 H Lactic Acid Calcium 9.9 D 9.8 Total Bilirubin 0.5 0.5 AST 21 25 ALT 14 14 Alkaline Phosphatase 45 51 Ammonia Total Protein 6.7 7.2 Albumin 3.9 4.1 COVID-19 (JIAN) Negative COVID-19 Clin Com See Note Influenza Type A (PCR) Influenza Type B (PCR) RSV RNA Qual (PCR) SARS-CoV-2 RNA (RT-PCR) 10/12/22 10/12/22 10/13/22 10:14 11:18 09:39 WBC 8.4 7.0 RBC 3.81 L 3.54 L Hgb 9.6 L 8.9 L Hct 31.1 L D 28.5 L MCV 81.6 80.5 MCH 25.2 L 25.1 L MCHC 30.9 L 31.2 RDW 19.4 H 19.4 H Plt Count 407 H 341 MPV 9.3 L 9.1 L Immature Gran % (Auto) 0.4 0.4 Neut % (Auto) 63.2 66.0 Lymph % (Auto) 24.7 20.6 Brooke % (Auto) 7.7 9.4 Eos % (Auto) 3.3 3.0 Baso % (Auto) 0.7 0.6 Lymph # (Auto) 2.1 1.4 Brooke # (Auto) 0.7 0.7 Eos # (Auto) 0.3 0.2 Baso # (Auto) 0.1 0.0 Abs Immat Gran (auto) 0.03 0.03 Absolute Neuts (auto) 5.3 4.6 Absolute Nucleated RBC 0.000 0.000 Nucleated RBC % (auto) 0.0 0.0 Sodium Potassium Chloride Carbon Dioxide Anion Gap BUN Creatinine Estim Creat Clear Calc Estimated GFR Random Glucose Fasting Glucose Lactic Acid Calcium Total Bilirubin AST ALT Alkaline Phosphatase Ammonia Total Protein Albumin COVID-19 (JIAN) COVID-19 Clin Com Influenza Type A (PCR) NEGATIVE Influenza Type B (PCR) NEGATIVE RSV RNA Qual (PCR) NEGATIVE SARS-CoV-2 RNA (RT-PCR) NEGATIVE 10/13/22 10/13/22 10/13/22 09:39 09:39 09:39 WBC RBC Hgb Hct MCV MCH MCHC RDW Plt Count MPV Immature Gran % (Auto) Neut % (Auto) Lymph % (Auto) Brooke % (Auto) Eos % (Auto) Baso % (Auto) Lymph # (Auto) Brooke # (Auto) Eos # (Auto) Baso # (Auto) Abs Immat Gran (auto) Absolute Neuts (auto) Absolute Nucleated RBC Nucleated RBC % (auto) Sodium 141 Potassium 4.7 Chloride 107 Carbon Dioxide 23 Anion Gap 16 BUN 27 H Creatinine 1.84 H Estim Creat Clear Calc 17.9 Estimated GFR 26 Random Glucose 154 H Fasting Glucose Lactic Acid 1.8 Calcium 9.7 Total Bilirubin 0.3 AST 21 ALT 13 Alkaline Phosphatase 46 Ammonia 21 Total Protein 6.5 Albumin 3.8 COVID-19 (JIAN) COVID-19 Clin Com Influenza Type A (PCR) Influenza Type B (PCR) RSV RNA Qual (PCR) SARS-CoV-2 RNA (RT-PCR) 10/14/22 06:52 WBC RBC Hgb Hct MCV MCH MCHC RDW Plt Count MPV Immature Gran % (Auto) Neut % (Auto) Lymph % (Auto) Brooke % (Auto) Eos % (Auto) Baso % (Auto) Lymph # (Auto) Brooke # (Auto) Eos # (Auto) Baso # (Auto) Abs Immat Gran (auto) Absolute Neuts (auto) Absolute Nucleated RBC Nucleated RBC % (auto) Sodium 143 Potassium 5.0 Chloride 113 H Carbon Dioxide 25 Anion Gap 10 L BUN 29 H Creatinine 1.12 Estim Creat Clear Calc 29.3 Estimated GFR 46 Random Glucose 106 Fasting Glucose Lactic Acid Calcium 9.1 D Total Bilirubin AST ALT Alkaline Phosphatase Ammonia Total Protein Albumin COVID-19 (JIAN) COVID-19 Clin Com Influenza Type A (PCR) Influenza Type B (PCR) RSV RNA Qual (PCR) SARS-CoV-2 RNA (RT-PCR) 10/10/22 Unknown Urine clean catch - Urine torres top Urine Culture - Final Imaging Diagnostic Imaging Impressions Chest X-Ray 10/12/22 06:00 IMPRESSION: Clear lungs Chest CT 10/12/22 14:30 IMPRESSION: 1. A 4 mm noncalcified nodule is seen at the medial right apex, with adjacent focal pleural and parenchymal scarring. According to the UPDATED 2017 Fleischner Society recommendations, the advised follow-up imaging for solid nodules < 6 mm is: LOW RISK PATIENT: No routine follow-up. HIGH RISK PATIENT: Optional CT at 12 months. 2. No mass, infiltrate or groundglass opacity is seen. 3. There is no thoracic lymphadenopathy or pleural effusion. 4. There are degenerative changes of the spine. No aggressive osseous lesion is seen. 5. There is a very large hiatus hernia. Fleischner guidelines were followed. DS: Summary Hospital Course Hospital Course: HPI: 86 yo HF presents in transfer from custodial, she had previously been living with daugther but it became too much for daugther to manage. In custodial patient has been screaming , with possible AH/vh in the pm? telling her her daughter is in danger or -She was not compliant at custodial with treatment with medications for her diabetes Past Psychiatric History: none Medical Evaluation Reviewed: Hospitalist Vita [place] had medical eval at [facility] with no acute medical findings HOSPITAL COURSE On the unit, pt was admitted on a CV signed by her HCP. Pt presented as confused unable to tell where she was and why she was brought to the hospital. She presented with auditory hallucinations reporting hearing voices of her daughter and also voices of a boy asking her where she was. Pt was seen responding to these voices. Her ability to retain new information is severely impaired and she would quickly forget that she had been told where she was and that her daughter was aware. Pt denied SI/HI. Initially when admitted she was combative and restless in the evening and night. This public relations writer discussed risks, benefits and alternative treatment options with her daughter, who agreed to start pt on risperidone for AH, given that higher doses of olanzapine were too sedating. She was also started on depakote for dysphoric mood and anxious mood related to confusion. Medically- pt found to have microcytic anemia with low ferretin levels of less than 29. She was started on ferrous every other day. Her current creatinine clearance is 29. Pt was on fenofibrate- some concern in terms of continuing this medication with significant decrease in creatinine clearance. Lipid panel is was within normal limits. Status at Discharge Cognitive/behavioral status at discharge: Pt with brigther, anxious at times affect due to confusion. Not oriented to place, situation, month, year or date. No SI/HI. Much less AH. No combative behaviors towards self or others. Much less dysphoric. Functional status at discharge: independent ambulation Overall status at discharge: patient is progressing back to baseline Time Spent with Patient Time attestation: Total time managing care of this patient today ____ minutes. Discharge Plan Discharge Anticipated Discharge Date/Time: 10/18/22 08:50 Patient Disposition: Home, Self-Care Discharge Diagnosis: AD Referrals: [facility] [Other] - 10/18/22 10:00 am (Patient to transfer back to [facility] on 10/18/22 for LT care. ) Discharge Medications: New losartan 50 mg Tablet 100 mg PO DAILY Qty: 0 0RF Protocol: Hold for SBP< HOLD for SBP < : 90 rivastigmine tartrate 1.5 mg Capsule 1.5 mg PO BID Qty: 0 0RF atorvastatin 80 mg Tablet 80 mg PO BEDTIME Qty: 0 0RF acetaminophen 325 mg Tablet 650 mg PO Q6H PRN (Reason: Headache/Pain Mild Scale (1-3)) Qty: 0 0RF hydralazine 25 mg Tablet 25 mg PO TID Qty: 0 0RF Protocol: Hold for SBP< HOLD for SBP < : 90 amlodipine 5 mg Tablet 5 mg PO DAILY Qty: 0 0RF Protocol: Hold for SBP< HOLD for SBP < : 90 ferrous sulfate 300 mg (60 mg iron)/5 mL Liquid 300 mg PO Q48H Qty: 0 0RF omeprazole 20 mg Capsule,Delayed Release(Dr/Ec) 20 mg PO BID Qty: 0 0RF mirtazapine 15 mg Tablet 15 mg PO BEDTIME Qty: 0 0RF metoprolol succinate 25 mg Tablet Extended Release 24 Hr 25 mg PO DAILY Qty: 0 0RF Protocol: Hold for SBP/HR < HOLD for SBP < : 90 HOLD for HR < : 60 divalproex 125 mg Capsule, Delayed Rel Sprinkle 125 mg PO TID Qty: 0 0RF risperidone 1 mg Tablet 1 mg PO BID Qty: 0 0RF memantine [Namenda] 10 mg Tablet 10 mg PO BID Qty: 0 0RF Continued cholecalciferol (vitamin D3) 50 mcg (2,000 unit) Capsule 50 mcg PO DAILY Discontinued buspirone 5 mg Tablet 5 mg PO BID atorvastatin 80 mg tablet 80 mg PO BEDTIME trazodone 50 mg tablet 125 mg PO BEDTIME hydralazine 25 mg tablet 25 mg PO TID Protocol: Hold for SBP< HOLD for SBP < : 120 amlodipine 5 mg tablet 5 mg PO DAILY Protocol: Hold for SBP< HOLD for SBP < : 120 pantoprazole 40 mg Tablet,Delayed Release (Dr/Ec) 40 mg PO DAILY metoprolol succinate 25 mg tablet extended release 24 hr 25 mg PO DAILY Protocol: Hold for SBP/HR < HOLD for SBP < : 120 HOLD for HR < : 50 losartan 100 mg tablet 100 mg PO DAILY sertraline 50 mg tablet 50 mg PO DAILY memantine 5 mg tablet 10 mg PO BID fenofibrate 54 mg tablet 54 mg PO DAILY olanzapine 5 mg Tablet 5 mg PO DAILY Discharge Orders: Discharge Order (Routine); Ordered 10/18/22 Ordered By: Jeanie Morgan Diet: Regular diet Activity on Discharge: As tolerated Stand Alone Forms: Patient Portal Discharge page, Community Support Care Plan Goals: Maintain mood No aggression towards self or others Health Concerns: Follow up with PCP Plan of Treatment: 1. Take medications as prescribed 2. Go to nearest ED or call 911 in event of emergency Assessment: Pt with brighter, non labile affect. No aggression towards self or others. Underlying dementia which impairs her orientation to place, situation, month. Less dysphoric.
== END 2022-10-18 10:05 | disposition home or self-care (01) | DRG 57 ==
PROVIDERS: Psychiatry & Neurology Psychiatry; Social Worker; Student in an Organized Health Care Education/Training Program; Admitting Provider Psychiatry & Neurology Psychiatry; Visit Provider Psychiatry & Neurology Psychiatry
DX: G30.9 Alzheimer's disease, unspecified (principal); N17.9 Acute kidney failure, unspecified; F02.84 Dementia in other diseases classified elsewhere, unspecified severity, with anxiety; K21.9 Gastro-esophageal reflux disease without esophagitis; F41.9 Anxiety disorder, unspecified; I95.9 Hypotension, unspecified; D50.9 Iron deficiency anemia, unspecified; E11.9 Type 2 diabetes mellitus without complications; Z20.822 Contact with and (suspected) exposure to COVID-19; Z91.148 Patient's other noncompliance with medication regimen for other reason; Z79.899 Other long term (current) drug therapy
CPT/HCPCS: 0241U; 36415; 71045; 71250; 80048; 80053; 80061; 81001; 82140; 82607; 82746; 83036; 83540; 83605; 84443; 85025; 87086; 87635